=== PATIENT | male | born 1940 | race Caucasian/White ===

== ENCOUNTER 2020-05-07 00:44 | Outpatient (CLI) | payer MEDICARE, SELFPAY ==
[2020-05-07 18:11] LABS: SARS-CoV-2 RNA PCR Negative
== END 2020-05-07 00:45 | disposition home or self-care (01) ==
LOC: ANHCOVIDDT 00:50
PROVIDERS: PCP Family Medicine; Visit Provider Urology
DX: Z01.812 Encounter for preprocedural laboratory examination (principal); Z11.59 Encounter for screening for other viral diseases
CPT/HCPCS: 87635; C9803; U0003

== ENCOUNTER 2020-05-07 09:21 | Outpatient (CLI) | payer MEDICARE, SELFPAY ==
--- NOTE | 2020-05-07 09:40 | ECG_ITS ---
Measurements Intervals [place] Rate: 72 P: 71 LA: 174 QRS: 7 QRSD: 119 T: 38 QT: 387 QTc: 424 Interpretive Statements SINUS RHYTHM LEFT ATRIAL ENLARGEMENT INTRAVENTRICULAR CONDUCTION DELAY ANTEROSEPTAL INFARCT, AGE INDETERMINATE PEAKED T WAVES- CONSIDER HYPERKALEMIA OR ISCHEMIA BORDERLINE ST ABNORMALITY- HIGH LATERAL LEADS ABNORMAL ECG Electronically Signed On 05-07-2020 10:29:08 CDT by Jeronimo Sesay D.O.
[2020-05-07 09:45] LABS: Basophils Absolute Auto 0.1 K/mm3 (0.0-0.1); Basophils Percent Auto 0.5 % (0.2-1.2); Eosinophils Absolute Auto 0.4 K/mm3 (0-0.3); Eosinophils Percent Auto 3.2 % (0-4.4); Hematocrit 45.2 % (42.0-52.0); Hemoglobin 14.8 g/dL (14.0-18.0); Immature Granulocyte Absolute 0.02 K/mm3 (0.00-0.031); Immature Granulocyte Percent A 0.2 % (0-0.5); Lymphocytes Absolute Auto 1.34 K/mm3 (0.9-3.2); Lymphocytes Percent Auto 12.3 % (18.3-44.2); Mean Corpuscular HGB Conc 32.7 g/dl (32-36); Mean Corpuscular Hemoglobin 32.4 pg (26-34); Mean Corpuscular Volume 98.9 fl (80-100); Mean Platelet Volume 10.1 fl (7.4-10.4); Monocytes Absolute Auto 0.8 K/mm3 (0.1-0.6); Monocytes Percent Auto 7.7 % (2.6-8.5); Neutrophils Absolute Auto 8.3 K/mm3 (1.3-6.7); Neutrophils Percent Auto 76.1 % (45.5-73.1); Platelet Count Result 180 k/mm3 (150-375); Red Blood Count 4.57 M/mm3 (4.6-6.20); Red Cell Distribution Width 13.6 % (11.5-14.5); White Blood Count 10.9 K/mm3 (4.5-10.0)
[2020-05-07 09:55] LABS: Prothrombin Time 12.4 Seconds (11.1-14.7)
[2020-05-07 09:56] LABS: Partial Thromboplastin Time 26.8 SECONDS (22.3-36.8)
[2020-05-07 09:57] LABS: Anion Gap 7 mmol/L (8-16); Blood Urea Nitrogen 18 mg/dL (9-20); Calcium 8.8 mg/dL (8.4-10.2); Carbon Dioxide 26 mmol/L (22-30); Chloride 105 mmol/L (98-107); Estimated Glomerular Filt Rate 42; Glucose 120 mg/dL (75-110); Potassium 4.1 mmol/L (3.4-5.0); Sodium 138 mmol/L (137-145)
== END 2020-05-07 09:22 | disposition home or self-care (01) ==
PROVIDERS: PCP Family Medicine; Referring Provider Anesthesiology; Visit Provider Urology
DX: Z01.818 Encounter for other preprocedural examination (principal); I10 Essential (primary) hypertension; D49.4 Neoplasm of unspecified behavior of bladder; R94.31 Abnormal electrocardiogram [ECG] [EKG]
CPT/HCPCS: 36415; 80048; 85025; 85610; 85730; 93005

== ENCOUNTER 2020-05-10 01:44 | Day surgery (SDC) | payer MEDICARE, SELFPAY ==
[2020-05-03 09:38] VITALS: BMI 20.2
[2020-05-10] VITALS (11 sets, daily range): BP systolic 126–207; BP diastolic 58–99; PULSE 63–77; RESP 12–16; TEMP 36.2–36.7; O2SAT 96–100
[2020-05-10] MEDS: LACTATED RINGERS 1,000 ML 30 ML IV CONT (10:45)
--- NOTE | 2020-05-10 12:39 | WPDHPUPDATE1 ---
History and Physical Update Update Date/Time: 05/10/20 12:39 History and Physical has been reviewed, including an updated exam of the patient. There are NO changes in the patient's condition. Risks, benefits, and alternatives have been discussed and questions answered. Patient agrees to proceed with procedure.
--- NOTE | 2020-05-10 12:40 | WPDANESEPPF ---
Anes - Initial Pre Proc Eval Procedure: Operation Date: 05/10/20 12:30 Proposed Procedures p Trans Urethral Resection Bladder Tumor - Tim Martinez MD Date/Time: 05/10/20 12:40 Surgeon: Tim Martinez MD Pre Op Diagnosis: bladder CA Patient Data Age: 79 Gender: M Height: 5 ft 8 in Weight: 62.4 kg Last Vital Signs Temp 36.7 C 05/10/20 10:56 Pulse 68 05/10/20 10:56 Resp 16 05/10/20 10:56 BP 170/87 H 05/10/20 10:56 Pulse Ox 98 05/10/20 10:56 Allergies Allergy/AdvReac Type Severity Reaction Status Date / Time No Known Allergies Allergy Verified 05/10/20 10:20 Home Medications Medication Instructions Recorded Confirmed Type aspirin 81 mg tablet,delayed 81 mg PO DAILY 10/05/19 05/10/20 History release cholecalciferol (vitamin D3) 25 1,000 unit PO DAILY 10/05/19 05/10/20 History mcg (1,000 unit) capsule vitamin E (dl, acetate) 100 unit 100 unit PO DAILY cap 10/05/19 05/10/20 History capsule clopidogrel 75 mg tablet See Rx Instructions .ROUTE 02/29/20 05/10/20 Rx .COMPLEX #90 tablet B-complex with vitamin C 1 tablet PO DAILY 05/02/20 05/10/20 History carvedilol 12.5 mg BID 05/03/20 05/10/20 History coenzyme Q10 100 mg capsule 100 mg PO DAILY 05/04/20 05/10/20 History ferrous gluconate 240 mg (27 mg 240 mg PO DAILY 05/04/20 05/10/20 History iron) tablet lisinopril 20 mg tablet 20 mg PO DAILY #90 tablet 05/04/20 05/10/20 Rx simvastatin 40 mg tablet 20 mg PO DAILY #90 tablet 05/04/20 05/04/20 Rx Patient hx anesthesia problems: none Family hx anesthesia problems: none PMFSH Past Medical History Medical History Anemia Bilateral carotid artery stenosis Bladder tumor CAD in [place] artery (~10/2013) Chronic combined systolic and diastolic CHF (congestive heart failure) (~10/2013) CKD (chronic kidney disease) stage 3, GFR 30-59 ml/min Dyslipidemia, goal LDL below 100 Essential (primary) hypertension Gross hematuria Hx of TIA (transient ischemic attack) and stroke (~05/2014) LBBB (left bundle branch block) Typhoid fever Surgical History Surgical History History of bilateral carotid endarterectomy 03/2014 and 05/2014 History of bladder surgery 03/2019 Family History Family History Other Family history of coronary artery disease Hypertension Social History Social History Smoking status: Current every day smoker Second hand tobacco smoke exposure: Yes Additional smoking assessment comments: 1/2PK/DAY/ON & OFF MANY YRS Alcohol intake: current Substance use: never Substance use type: does not use Living arrangements: alone Gender identity (if verbalized by the patient): Male Spiritual care concerns: No Anes - Eval Final PreProcedure Day of Procedure 05/10/20 12:40 Patient weight: normal Heart: regular rate and rhythm Lungs: decreased breath sounds Airway: Mallampati scale class II Neurological: alert and oriented Last oral intake: >/= 8 hours ASA classification: IV Emergent: no Anesthetic plan: proceed Anesthesia type and monitoring: general LMA and standard monitoring Informed Consent: The patient's anesthetic plan and its attendant risks and benefits were discussed with the patient/family/POA. Questions were solicited and answers provided to the satisfaction of the patient/family/POA.
--- NOTE | 2020-05-10 12:41 | SUR.PREOP ---
Discussed delay with patient. Voices understanding.
[2020-05-10] MEDS: ceFAZolin 2 GM/D5W 50 ML 2 GM/50 ML BAG IVPB (14:23)
[2020-05-10] MEDS: LIDOCAINE HCL 2% GEL UROJET 10 ML PKG MUCOUS MEM (14:33)
--- NOTE | 2020-05-10 15:02 | PM.PROC ---
Procedure Note - Detailed Date of procedure: 05/10/20 Pre-op diagnosis: bladder CA Post-op diagnosis: same Procedure performed: Transurethral resection of multiple bladder tumors greater than 5 cm total. Description of procedure: Patient was taken the operative suite and correctly identified. Once anesthesia was obtained he was placed in the dorsal lithotomy position and prepped and draped usual sterile fashion. Twenty-four [place] resectoscope sheath was inserted the bladder. He has tumors noted along the floor as well as the dome of the bladder/anterior wall And left lateral wall. We went ahead and resected all these areas. The largest tumor was along the anterior wall dome area measuring at least 3 cm area. The area on the floor was then least 2 cm. A area on the left lateral wall was about a cm and a half. Hemostasis was achieved using electrocautery. 2% viscous lidocaine was inserted urethra an 18 [place] 3 was placed. Bladder tumor was sent for analysis. Patient was taken recovery stable condition. If his urine is cleared will be discharged home with a Fenton catheter and have it removed on Saturday. Anesthesia: GLMA Surgeon: Tim Martinez MD Drains: Yes Packing: No Pathology: yes Complications: No immediate complications Condition: stable Disposition: PACU
[2020-05-10] MEDS: hydrALAZINE HCL 20 MG/ML VIAL 10 MG IV PUSH ×2 (15:25→16:07)
== END 2020-05-10 17:40 | disposition home or self-care (01) ==
PROVIDERS: PCP Family Medicine; Visit Provider Urology
PROC: 0TBB8ZZ Excision of Bladder, Via Natural or Artificial Opening Endoscopic (ICD-10-PCS; CPT 52235; principal; 2020-05-10 12:30)
DX: C67.8 Malignant neoplasm of overlapping sites of bladder (principal); I13.0 Hypertensive heart and chronic kidney disease with heart failure and stage 1 through stage 4 chronic kidney disease, or unspecified chronic kidney disease; I50.42 Chronic combined systolic (congestive) and diastolic (congestive) heart failure; N18.3 Chronic kidney disease, stage 3 (moderate); I25.10 Atherosclerotic heart disease of native coronary artery without angina pectoris; D64.9 Anemia, unspecified; E78.5 Hyperlipidemia, unspecified; I44.7 Left bundle-branch block, unspecified; Z86.73 Personal history of transient ischemic attack (TIA), and cerebral infarction without residual deficits; Z79.82 Long term (current) use of aspirin; F17.210 Nicotine dependence, cigarettes, uncomplicated
CPT/HCPCS: 52235; 36415; 80048; 85025; 85610; 85730; 87635; 88305; 88307; 93005; A9270; C9803; J0360; J0690; J1100; J2405; J2704; J3010; J7120; U0003

== ENCOUNTER 2020-05-12 14:55 | Inpatient (IN) | payer MEDICARE, SELFPAY ==
[2020-05-11] VITALS (10 sets, daily range): BP systolic 129–180; BP diastolic 57–84; PULSE 41–79; RESP 12–22; TEMP 35.9–36.8; O2SAT 91–100
[2020-05-11] MEDS: LACTATED RINGERS 1,000 ML 30 ML IV CONT (16:05)
--- NOTE | 2020-05-11 16:12 | WPDHPUPDATE1 ---
History and Physical Update Update Date/Time: 05/11/20 16:12 History and Physical has been reviewed, including an updated exam of the patient. There are NO changes in the patient's condition. Risks, benefits, and alternatives have been discussed and questions answered. Patient agrees to proceed with procedure. Plan for cysto with clot evacuation and cystogram
[2020-05-11] MEDS: ceFAZolin 2 GM/D5W 50 ML 2 GM/50 ML BAG IVPB (16:22)
--- NOTE | 2020-05-11 16:53 | P.OP_ITS ---
Procedure Note - Detailed Date of procedure: 05/11/20 Pre-op diagnosis: Hematuria Post-op diagnosis: same Procedure performed: Cystoscopy, clot evacuation with fulguration, resection of bladder lesion -5mm, cystogram Description of procedure: patient was taken the operative suite and correctly identified. Once anesthesia was obtained he was placed in dorsal lithotomy position and prepped and draped usual sterile fashion. Twenty-four [place] resectoscope sheath was inserted in the bladder. He had a small tumor that we extracted. We went ahead and fulgurated the prior resection sites all there was no active bleeding at this time. He was also noted that there was a small tumor that we had missed yesterday measuring about 5 mm just adjacent to the resection site. We went ahead resected this with a 24 [place] loop. This was sent for analysis. We then placed a [address] Fenton inflated with 10 cc in the balloon. we performed a cystogram through this. There was no evidence of extravasation during injection but is some question of some when we took our final shot with the bladder empty. It appears to be extraperitoneal if it indeed it is. Fenton was connected to continuous bladder irrigation is taken recovery stable condition. He will be admitted for observation overnight. Will plan on leaving the Fenton in until next week. Anesthesia: MAC Surgeon: Tim Martinez MD Drains: Yes Packing: No Pathology: yes Complications: No immediate complications Condition: stable Disposition: PACU
--- NOTE | 2020-05-11 17:35 | SUR.PHASEI ---
[phone] sbar faxed floor notified
--- NOTE | 2020-05-11 18:06 | PC.NURSE ---
This patient, Sarabjit Gordon, was admitted to Medical Room 348-. Patient/family oriented to hospital policies and general routines including ID bracelet, bed and alarms, visiting hours, pain management, procedures, bathroom and other care routines, personal items, smoking policy, room service/diet, and visiting hours. Valuables list has been completed. Information on how to activate the Rapid Response Team has been discussed. Patient/Family are encouraged to report perceived risks to care and to ask questions if they do not understand what they are told or what they should do.
[2020-05-11] MEDS: ONDANSETRON INJ 4 MG/2 ML VIAL IV PUSH (18:34)
[2020-05-11] MEDS: DEXTROSE 5%/LACTATED RINGERS 1,000 ML 125 ML IV CONT (18:44)
[2020-05-11] MEDS: DOCUSATE SODIUM 100 MG CAPSULE PO (20:35)
--- NOTE | ~2020-05-12 | XR_ITS ---
EXAMINATION: XR abdomen obstructive series EXAM DATE: 05/13/2020 18:19 INDICATION: Nausea, constipation, appetite loss. TECHNIQUE: Frontal upright projection of the upper abdomen, frontal projection of the lower abdomen f or interpretation. There is no prior study for comparison. FINDINGS: There is expected amount of colonic stool and gas. No small bowel dilation, nonobstructiv e bowel gas pattern. Calcification projecting over the expected location of right kidney, possible n ephrolithiasis measuring about a centimeter. There is no organomegaly. There is moderate lumbar levos coliosis. Advanced lumbar spondylosis. IMPRESSION: Unremarkable abdomen x-ray exam. Possible right nephrolithiasis. Reviewed, dictated and finalized at location A.
--- NOTE | ~2020-05-12 | XR_ITS ---
EXAMINATION: XR OR cystogram EXAM DATE: 05/11/2020 17:12 INDICATION: TECHNIQUE: Fluoroscopy used during XR OR cystogram performed by Dr. Tim Martinez MD. The DAP for this procedure was0.3 mGym2. FINDINGS: There is blush of contrast within the central aspect of the contrast with some extension t oward the right side of the pelvis. Based on single image, appears suspicious for bladder extravasati on but please correlate with procedure note. IMPRESSION: Possible bladder contrast extravasation. Reviewed, dictated and finalized at location A.
--- NOTE | ~2020-05-12 | XR_ITS ---
EXAMINATION: XR chest 2V DATE: 05/14/2020 12:56 INDICATION: Cough. Rhonchi. TECHNIQUE: Frontal and lateral views of the chest were obtained. COMPARISON: Chest 2 views 04/21/2014, CT abdomen and pelvis 07/06/2018 FINDINGS: There are small pleural effusions. There are airspace opacities at the lung bases, right wo rse than left. There is mild atelectasis in left midlung zone. No pneumothorax. The heart size is nor mal. IMPRESSION: 1. Airspace opacities at the lung bases, right worse than left, consistent with atelectasis versus pn eumonia. 2. Small pleural effusions. Reviewed, dictated and finalized at location A. IMPRESSION: 1. Airspace opacities at the lung bases, right worse than left, consistent with atelectasis versus pneumonia. 2. Small pleural effusions.
[2020-05-12 02:00] VITALS: BP 138/65; PULSE 87; RESP 18; TEMP 37.1; O2SAT 90
[2020-05-12 06:00] VITALS: BP 110/53; PULSE 88; RESP 20; TEMP 37.2; O2SAT 94
[2020-05-12 06:11] LABS: Hematocrit 37.9 % (42.0-52.0)
[2020-05-12 06:22] LABS: Anion Gap 6 mmol/L (8-16); Blood Urea Nitrogen 28 mg/dL (9-20); Calcium 7.9 mg/dL (8.4-10.2); Carbon Dioxide 23 mmol/L (22-30); Chloride 98 mmol/L (98-107); Estimated Glomerular Filt Rate 33; Glucose 108 mg/dL (75-110); Potassium 4.2 mmol/L (3.4-5.0); Sodium 127 mmol/L (137-145)
--- NOTE | 2020-05-12 08:46 | WPDANESPN ---
Anes - Prog Note Post-Op Date/Time: 05/12/20 08:46 Cardiovascular status: normal Respiratory status: normal Airway patency: baseline Mental status: baseline Post-Op hydration status: normal Vital Signs: Last Vital Signs Temp 37.2 C 05/12/20 06:00 Pulse 88 05/12/20 06:00 Resp 20 05/12/20 06:00 BP 110/53 L 05/12/20 06:00 Pulse Ox 94 05/12/20 06:00 I/O: Intake & Output 05/11/20 05/12/20 05/12/20 23:59 07:59 15:59 Intake Total 700 1150 Output Total 2200 650 Balance -1500 500 Laboratory Tests 05/12/20 06:05 05/12/20 06:05 05/12/20 05/12/20 06:05 06:05 Hgb 13.0 L Hct 37.9 L Sodium 127 L Potassium 4.2 Chloride 98 Carbon Dioxide 23 Anion Gap 6 L BUN 28 H D Creatinine 2.00 H Estim Creat Clear Calc Not Reportable Estimated GFR 33 L Glucose 108 Calcium 7.9 L Post-procedural complaints: none Patient Feedback: Patient satisfied with anesthetic care.
[2020-05-12] MEDS: DOCUSATE SODIUM 100 MG CAPSULE PO ×2 (08:57→16:55)
[2020-05-12] MEDS: FAMOTIDINE 20 MG TABLET PO ×2 (10:01→20:38)
[2020-05-12] MEDS: ONDANSETRON INJ 4 MG/2 ML VIAL IV PUSH (10:01)
[2020-05-12] MEDS: DEXTROSE 5%/LACTATED RINGERS 1,000 ML 125 ML IV CONT ×2 (10:02→18:38)
--- NOTE | 2020-05-12 12:01 | WPDUROPN2 ---
Progress Note: A&P Assessment and Plan (1) Bladder tumor: Code(s): D49.4 - Neoplasm of unspecified behavior of bladder Status: Acute (2) Gross hematuria: Code(s): R31.0 - Gross hematuria Status: Acute Assessment and Plan: Keep CBI running until clear, then wean to off. Will plan to keep talley in for 1 week and remove in the office. Will re-evaluate tomorrow morning. Subjective Subjective Date/Time Seen: 05/12/20 12:01 POD #1 Cystoscopy, clot evacuation with fulguration, resection of bladder lesion -5mm, cystogram POD #2 TURBT Review of Systems Respiratory: Respiratory: Reports no additional respiratory complaints Gastrointestinal: Gastrointestinal: Reports abdominal pain, Denies nausea and Denies vomiting Genitourinary: Genitourinary: Reports hematuria, Denies testicular pain, Denies urinary frequency, Denies urinary hesitancy, Denies urinary incontinence and Denies urinary urgency Exam Resp: Effort & Inspection: normal respiratory effort Cardio: Rate: regular rate GI: GI Palp: Yes Soft to palpation and Yes Tenderness to palpation present (GI) : General: Yes no CVA tenderness Urinary Catheter: Urinary Catheter: patent and draining, urine clear and urine pink Extrem: General: no edema Objective Data Vital Signs Vital Signs: Vital Signs - 24 hr 05/11/20 16:21 05/11/20 16:59 05/11/20 17:15 Temperature 98.2 F 97.6 F Pulse Rate 78 74 72 Respiratory Rate 20 12 18 Blood Pressure 175/74 H 129/57 L 180/76 H Pulse Oximetry 100 100 05/11/20 17:30 05/11/20 17:45 05/11/20 18:10 Temperature 97.5 F L Pulse Rate 74 79 77 Respiratory Rate 18 18 18 Blood Pressure 161/84 H 163/79 H 176/82 H Pulse Oximetry 94 94 92 05/11/20 18:48 05/11/20 18:55 05/11/20 19:44 Temperature 96.9 F L 97.2 F L 96.6 F L Pulse Rate 63 73 41 L Respiratory Rate 18 18 22 H Blood Pressure 174/71 H 141/81 H 147/75 H Pulse Oximetry 92 96 94 05/11/20 22:00 05/12/20 02:00 05/12/20 06:00 Temperature 97.1 F L 98.7 F 98.9 F Pulse Rate 78 87 88 Respiratory Rate 20 18 20 Blood Pressure 172/70 H 138/65 110/53 L Pulse Oximetry 91 90 94 Intake/Output Intake/Output: Intake & Output 05/09/20 05/10/20 05/11/20 05/12/20 23:59 23:59 23:59 23:59 Intake Total 700 1260 Output Total 2200 3550 Balance -1500 -2290 Meds/Results Medications: Active Medications Generic Name Dose Route Start Last Admin Trade Name Freq PRN Reason Stop Dose Admin Hydrocodone Bitart/Acetaminophen 1 tab 05/11/20 17:59 [place] 5-325 Mg PO Q4H PRN Pain Rated 1-6 Cephalexin HCl 500 mg 05/12/20 13:00 Keflex Capsule PO QID SWAPNA Docusate Sodium 100 mg 05/11/20 21:00 05/12/20 08:57 Colace Capsule PO 100 mg BID SWAPNA Administration Famotidine 20 mg 05/12/20 09:00 05/12/20 10:01 Pepcid PO 20 mg Q12HR SWAPNA Administration Hyoscyamine 0.125 mg 05/11/20 17:59 Levsin Tablet SUBLINGUAL Q6H PRN Bladder Spasm Dextrose/Lactated Ringer's 1,000 mls @ 125 mls/hr 05/11/20 17:59 05/12/20 10:02 Dextrose 5%/Lactated Ringers IV CONT 125 mls/hr .Q8H SWAPNA Administration Morphine Sulfate 2 mg 05/11/20 17:59 Morphine Sulfate Inj IV PUSH Q2H PRN Pain Rated 7-10 Naloxone HCl 0.1 mg 05/11/20 17:59 Narcan IV PUSH Q2M PRN Opiate Reversal Ondansetron HCl 4 mg 05/11/20 17:59 05/12/20 10:01 Zofran Inj IV PUSH 4 mg Q12H PRN Administration Nausea And Vomiting Radiology Results: ITS Impressions Cystogram 05/11/20 17:25 IMPRESSION: Possible bladder contrast extravasation. Labs Labs: Laboratory Results - last 24 hr 05/12/20 05/12/20 06:05 06:05 Hgb 13.0 L Hct 37.9 L Sodium 127 L Potassium 4.2 Chloride 98 Carbon Dioxide 23 Anion Gap 6 L BUN 28 H D Creatinine 2.00 H Estim Creat Clear Calc Not Reportable Estimated GFR 33 L Glucose 108 Calcium 7.9 L
[2020-05-12] MEDS: CEPHALEXIN 500 MG CAPSULE PO ×3 (12:24→20:38)
[2020-05-12 14:00] VITALS: BP 129/55; PULSE 85; RESP 16; TEMP 37.1; O2SAT 95
[2020-05-12] MEDS: HYOSCYAMINE SULFATE 0.125 MG TABLET SUBLINGUAL (18:47)
[2020-05-12 21:44] VITALS: BP 136/80; PULSE 91; RESP 14; TEMP 37; O2SAT 92
[2020-05-13] MEDS: DEXTROSE 5%/LACTATED RINGERS 1,000 ML 125 ML IV CONT ×3 (03:00→19:40)
[2020-05-13 04:42] VITALS: BP 128/57; PULSE 55; RESP 14; TEMP 36.8; O2SAT 94
--- NOTE | 2020-05-13 09:09 | WPDUROPN2 ---
Progress Note: A&P Assessment and Plan (1) Bladder tumor: Code(s): D49.4 - Neoplasm of unspecified behavior of bladder Status: Acute Assessment and Plan: Urine has cleared off of CBI. Patient will go home with talley and have it removed next week in the office. May keep CBI off. (2) Gross hematuria: Code(s): R31.0 - Gross hematuria Status: Acute Assessment and Plan: Resolved (3) JONATAN (acute kidney injury): Code(s): N17.9 - Acute kidney failure, unspecified Status: Acute Assessment and Plan: A stat BMP was drawn to check creatinine, as it increased yesteday to 2.0 from 1.6. Once creatinine is stable, will plan to discharge home. Subjective Subjective Date/Time Seen: 05/13/20 09:09 POD #2 Cystoscopy, clot evacuation with fulguration, resection of bladder lesion -5mm, cystogram POD #3 TURBT Urine is clear today off CBI. Review of Systems Cardiovascular: Cardiovascular: Denies chest pain Respiratory: Respiratory: Reports no additional respiratory complaints Gastrointestinal: Gastrointestinal: Denies abdominal pain, Denies nausea and Denies vomiting Genitourinary: Genitourinary: Denies hematuria Exam Resp: Effort & Inspection: normal respiratory effort Cardio: Rate: bradycardic GI: GI Palp: Yes Soft to palpation and No Tenderness to palpation present (GI) : General: Yes no CVA tenderness Urinary Catheter: Urinary Catheter: patent and draining and urine clear Extrem: General: no edema Objective Data Vital Signs Vital Signs: Vital Signs - 24 hr 05/12/20 14:00 05/12/20 21:44 05/13/20 04:42 Temperature 98.8 F 98.6 F 98.2 F Pulse Rate 85 91 55 L Respiratory Rate 16 14 14 Blood Pressure 129/55 L 136/80 128/57 L Pulse Oximetry 95 92 94 Intake/Output Intake/Output: Intake & Output 05/10/20 05/11/20 05/12/20 05/13/20 23:59 23:59 23:59 23:59 Intake Total 700 3870 1240 Output Total 2200 4600 550 Balance -1500 -730 690 Meds/Results Medications: Active Medications Generic Name Dose Route Start Last Admin Trade Name Freq PRN Reason Stop Dose Admin Hydrocodone Bitart/Acetaminophen 1 tab 05/11/20 17:59 05/12/20 18:45 [place] 5-325 Mg PO 1 tab Q4H PRN Administration Pain Rated 1-6 Cephalexin HCl 500 mg 05/12/20 13:00 05/12/20 20:38 Keflex Capsule PO 500 mg QID SWAPNA Administration Docusate Sodium 100 mg 05/11/20 21:00 05/12/20 16:55 Colace Capsule PO 100 mg BID SWAPNA Administration Famotidine 20 mg 05/12/20 09:00 05/12/20 20:38 Pepcid PO 20 mg Q12HR SWAPNA Administration Hyoscyamine 0.125 mg 05/11/20 17:59 05/12/20 18:47 Levsin Tablet SUBLINGUAL 0.125 mg Q6H PRN Administration Bladder Spasm Dextrose/Lactated Ringer's 1,000 mls @ 125 mls/hr 05/11/20 17:59 05/13/20 03:00 Dextrose 5%/Lactated Ringers IV CONT 125 mls/hr .Q8H SWAPNA Administration Morphine Sulfate 2 mg 05/11/20 17:59 Morphine Sulfate Inj IV PUSH Q2H PRN Pain Rated 7-10 Naloxone HCl 0.1 mg 05/11/20 17:59 Narcan IV PUSH Q2M PRN Opiate Reversal Ondansetron HCl 4 mg 05/11/20 17:59 05/12/20 10:01 Zofran Inj IV PUSH 4 mg Q12H PRN Administration Nausea And Vomiting Radiology Results: ITS Impressions Cystogram 05/11/20 17:25 IMPRESSION: Possible bladder contrast extravasation.
[2020-05-13 09:22] LABS: Anion Gap 3 mmol/L (8-16); Blood Urea Nitrogen 18 mg/dL (9-20); Calcium 7.9 mg/dL (8.4-10.2); Carbon Dioxide 24 mmol/L (22-30); Chloride 105 mmol/L (98-107); Estimated Glomerular Filt Rate 49; Glucose 127 mg/dL (75-110); Potassium 4.2 mmol/L (3.4-5.0); Sodium 132 mmol/L (137-145)
[2020-05-13] MEDS: FAMOTIDINE 20 MG TABLET PO ×2 (09:32→21:57)
[2020-05-13] MEDS: CEPHALEXIN 500 MG CAPSULE PO ×4 (09:32→21:57)
[2020-05-13] MEDS: DOCUSATE SODIUM 100 MG CAPSULE PO ×2 (09:32→16:50)
[2020-05-13 14:00] VITALS: BP 178/80; PULSE 90; RESP 16; TEMP 36.9; O2SAT 92
[2020-05-13 14:55] VITALS: PULSE 90
[2020-05-13] MEDS: carvediloL 12.5 MG TABLET PO ×2 (14:55→21:57)
[2020-05-13] MEDS: lisinopriL 20 MG TABLET PO (14:56)
[2020-05-13 16:57] VITALS: BP 156/86
[2020-05-13 20:46] VITALS: BP 146/93; PULSE 86; RESP 16; TEMP 36.9; O2SAT 95
[2020-05-13 21:57] VITALS: PULSE 68
[2020-05-14] VITALS (14 sets, daily range): BP systolic 170–185; BP diastolic 68–78; PULSE 71–86; RESP 16–18; TEMP 36.8–37.2; O2SAT 93–95
[2020-05-14] MEDS: ALBUTEROL SULFATE NEB 2.5 MG/0.5 ML INH 5 MG INHALATION ×4 (04:36→19:18)
[2020-05-14] MEDS: DEXTROSE 5%/LACTATED RINGERS 1,000 ML 125 ML IV CONT (05:47)
[2020-05-14] MEDS: CEPHALEXIN 500 MG CAPSULE PO ×4 (08:42→21:50)
[2020-05-14] MEDS: lisinopriL 20 MG TABLET PO (08:43)
[2020-05-14] MEDS: carvediloL 12.5 MG TABLET PO ×2 (08:44→21:49)
[2020-05-14] MEDS: FAMOTIDINE 20 MG TABLET PO ×2 (08:46→21:50)
[2020-05-14 09:39] LABS: Magnesium 1.7 mg/dL (1.6-2.3)
[2020-05-14 09:54] LABS: Anion Gap 5 mmol/L (8-16); Blood Urea Nitrogen 12 mg/dL (9-20); Calcium 8.3 mg/dL (8.4-10.2); Carbon Dioxide 27 mmol/L (22-30); Chloride 104 mmol/L (98-107); Estimated Glomerular Filt Rate > 60; Glucose 175 mg/dL (75-110); Potassium 3.6 mmol/L (3.4-5.0); Sodium 136 mmol/L (137-145)
--- NOTE | 2020-05-14 11:47 | PM.IMCN ---
Assessment and Plan Assessment and plan (1) Chronic combined systolic and diastolic CHF (congestive heart failure): Onset Date: ~10/2013 Code(s): I50.42 - Chronic combined systolic (congestive) and diastolic (congestive) heart failure Status: Acute Assessment and Plan: Lung exam reveals rhonchi and crackles, possibly suggesting a bit volume overload. He has had nearly 10L input since admission, with unclear output amount. Patient currently on IVF at 125 mL/hr due to poor oral intake since 05/11. Other considerations for cough/congestion would be possible pneumonia, although he has not had a fever. No diagnosis of COPD although is a smoker Will obtain a CXR Stop IVF as he may be a bit vol overloaded and is now having increased PO intake Will give 20 mg Lasix IV to see if this helps with congestion Obtain a CBC to assess WBC Will start IS as well in case there is atelectasis due to limited activity on previous days (nursing states he has been ambulating more today) Recommend observing overnight and reassessing tomorrow (2) Constipation: Code(s): K59.00 - Constipation, unspecified Status: Acute Assessment and Plan: With poor appetite/poor PO intake for several days. This appears to have resolved as he has had a BM and is tolerating PO today. No change in current management Monitor (3) JONATAN (acute kidney injury): Code(s): N17.9 - Acute kidney failure, unspecified Status: Acute Assessment and Plan: Acute on CKDIII; appears to be at or below his baseline with Cr today showing 1.10. Monitor Will stop IVF (4) Bladder tumor: Code(s): D49.4 - Neoplasm of unspecified behavior of bladder Status: Acute Assessment and Plan: Management per primary service (5) Anemia: Code(s): D64.9 - Anemia, unspecified Status: Acute Assessment and Plan: Appears to be at baseline Monitor (6) Gross hematuria: Code(s): R31.0 - Gross hematuria Status: Acute Assessment and Plan: Management per primary service (7) CAD in [place] artery: Onset Date: ~10/2013 Code(s): I25.10 - Atherosclerotic heart disease of [place] coronary artery without angina pectoris Status: Acute Assessment and Plan: Aspirin and plavix held per primary service Will defer resumption of these meds per primary service (8) Dyslipidemia, goal LDL below 100: Code(s): E78.5 - Hyperlipidemia, unspecified Status: Acute Assessment and Plan: Will resume statin Check LFTs tomorrow (9) Essential (primary) hypertension: Code(s): I10 - Essential (primary) hypertension Status: Acute Assessment and Plan: BP labile with last reading 180s sys prior to meds Continue home antihypertensives Monitor Additional Plan Thank you for allowing the Hospitalist team to care for this patient during their stay. We will continue to follow with you. Please call with any questions Collaborative physician for this Hospitalist Consult H&P is Dr. Gregg GREGORIO 05/14/2020 at roughly 11:45 am HPI Data of Consult Consult date: 05/14/20 Requesting Physician: KELI ColladoC Primary Care Provider: Lukas Tripp MD Consult Narrative Narrative: Sarabjit G Heidi is a 79 year old male with history of CAD, chronic systolic and diastolic CHF, CKD, HTN, and bladder tumor who presented to the hospital on 05/11 for planned cystoscopy, clot evacuation with fulguration, resection of bladder lesion -5mm, and cystogram for management of bladder tumor on the same day of presentation; Hospitalist
[2020-05-14] MEDS: FUROSEMIDE INJ 40 MG/4 ML VIAL 20 MG IV PUSH (12:20)
[2020-05-14] MEDS: POTASSIUM CHLORIDE 20 MEQ PACKET (FOR LIQUID) PO (12:20)
[2020-05-14 13:40] LABS: Basophils Percent Auto 0.2 % (0.2-1.2); Eosinophils Absolute Auto 0.1 K/mm3 (0-0.3); Eosinophils Percent Auto 0.8 % (0-4.4); Hematocrit 36.2 % (42.0-52.0); Hemoglobin 12.2 g/dL (14.0-18.0); Immature Granulocyte Absolute 0.05 K/mm3 (0.00-0.031); Immature Granulocyte Percent A 0.6 % (0-0.5); Lymphocytes Absolute Auto 0.91 K/mm3 (0.9-3.2); Lymphocytes Percent Auto 10.4 % (18.3-44.2); Mean Corpuscular HGB Conc 33.7 g/dl (32-36); Mean Corpuscular Hemoglobin 32.8 pg (26-34); Mean Corpuscular Volume 97.3 fl (80-100); Mean Platelet Volume 10.5 fl (7.4-10.4); Monocytes Absolute Auto 0.8 K/mm3 (0.1-0.6); Monocytes Percent Auto 9.1 % (2.6-8.5); Neutrophils Absolute Auto 6.9 K/mm3 (1.3-6.7); Neutrophils Percent Auto 78.9 % (45.5-73.1); Platelet Count Result 157 k/mm3 (150-375); Red Blood Count 3.72 M/mm3 (4.6-6.20); Red Cell Distribution Width 13.9 % (11.5-14.5); White Blood Count 8.8 K/mm3 (4.5-10.0)
[2020-05-14] MEDS: SIMVASTATIN 20 MG TABLET PO (14:06)
--- NOTE | 2020-05-14 15:52 | WPDUROPN2 ---
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 Trial of voiding in am. Pathology pending Medical eval and treatment noted---likely home tomorrow (2) Gross hematuria: Code(s): R31.0 - Gross hematuria Status: Acute Assessment and Plan: urine now clear Subjective Subjective Date/Time Seen: 05/14/20 15:52 Fenton clear today. Getting Lasix. Breathing improved. Review of Systems Genitourinary: Genitourinary: Denies flank pain Exam Resp: Effort & Inspection: normal respiratory effort : General: Yes no CVA tenderness Urinary Catheter: Urinary Catheter: patent and draining and urine clear Back/Spine/Pelvis: Back: no CVA tenderness Objective Data Vital Signs Vital Signs: Vital Signs - 24 hr 05/13/20 16:57 05/13/20 20:46 05/13/20 21:57 Temperature 36.9 C Pulse Rate 86 68 Respiratory Rate 16 Blood Pressure 156/86 H 146/93 H Pulse Oximetry 95 05/14/20 04:10 05/14/20 04:36 05/14/20 04:47 Temperature 37.2 C Pulse Rate 76 78 81 Respiratory Rate 16 16 16 Blood Pressure 180/78 H Pulse Oximetry 93 05/14/20 08:44 05/14/20 08:55 05/14/20 09:05 Temperature Pulse Rate 86 83 85 Respiratory Rate 16 16 Blood Pressure Pulse Oximetry 05/14/20 14:00 05/14/20 15:00 05/14/20 15:10 Temperature 36.8 C Pulse Rate 76 78 82 Respiratory Rate 18 16 16 Blood Pressure 185/76 H Pulse Oximetry 95 Intake/Output Intake/Output: Intake & Output 05/11/20 05/12/20 05/13/20 05/14/20 23:59 23:59 23:59 23:59 Intake Total 700 3870 3690 2050 Output Total 2200 4600 1950 650 Balance -1500 -730 1740 1400 Meds/Results Medications: Active Medications Generic Name Dose Route Start Last Admin Trade Name Freq PRN Reason Stop Dose Admin Hydrocodone Bitart/Acetaminophen 1 tab 05/11/20 17:59 05/12/20 18:45 [place] 5-325 Mg PO 1 tab Q4H PRN Administration Pain Rated 1-6 Albuterol 5 mg 05/14/20 04:30 05/14/20 15:00 Albuterol Sulf Neb 2.5mg/0.5ml INHALATION 5 mg Q6HRT SAWPNA Administration Carvedilol 12.5 mg 05/13/20 14:45 05/14/20 08:44 Coreg PO 12.5 mg Q12HR SWAPNA Administration Cephalexin HCl 500 mg 05/12/20 13:00 05/14/20 12:20 Keflex Capsule PO 500 mg QID SWAPNA Administration Docusate Sodium 100 mg 05/11/20 21:00 05/14/20 08:41 Colace Capsule PO Not Given BID [facility] Famotidine 20 mg 05/12/20 09:00 05/14/20 08:46 Pepcid PO 20 mg Q12HR SWAPNA Administration Hydralazine HCl 10 mg 05/14/20 15:34 Apresoline Hcl Inj IV PUSH Q8H PRN Blood Pressure - High Hyoscyamine 0.125 mg 05/11/20 17:59 05/12/20 18:47 Levsin Tablet SUBLINGUAL 0.125 mg Q6H PRN Administration Bladder Spasm Lisinopril 20 mg 05/13/20 09:00 05/14/20 08:43 Prinivil PO 20 mg QAM SWAPNA Administration Morphine Sulfate 2 mg 05/11/20 17:59 Morphine Sulfate Inj IV PUSH Q2H PRN Pain Rated 7-10 Naloxone HCl 0.1 mg 05/11/20 17:59 Narcan IV PUSH Q2M PRN Opiate Reversal Ondansetron HCl 4 mg 05/11/20 17:59 05/12/20 10:01 Zofran Inj IV PUSH 4 mg Q12H PRN Administration Nausea And Vomiting Simvastatin 20 mg 05/14/20 12:05 05/14/20 14:06 Zocor PO 20 mg DAILY SWAPNA Administration Radiology Results: ITS Impressions Cystogram 05/11/20 17:25 IMPRESSION: Possible bladder contrast extravasation. Abdomen X-Ray 05/13/20 19:06 IMPRESSION: Unremarkable abdomen x-ray exam. Possible right nephrolithiasis. Chest X-Ray 05/14/20 13:01 IMPRESSION: 1. Airspace opacities at the lung bases, right worse than left, consistent with atelectasis versus pneumonia. 2. Small pleural effusions. Labs Labs: Laboratory Results - last 24 hr 05/14/20 05/14/20 05/14/20 08:58 09:01 09:01 WB
[2020-05-14] MEDS: hydrALAZINE HCL 20 MG/ML VIAL 10 MG IV PUSH (15:53)
--- NOTE | 2020-05-14 17:38 | PC.NURSE ---
Pt found,by [employer], giving himself an enema after being told yesterday, 05/13/2020,evening that he is not to do his own enemas on his own. I myself as well as my charge nurse went in with the pt and stated for his own safety that he can not do this on his own. He states that he just feels like he needs washed out, not that he's blocked up. Pt did have 2 bowel movements yesterday and even refused is colace this morning saying he did not need it. Stoney Enriquez aware of the refusal of the colace and Dr. Escobedo called and message left to her cell phone in regards to the 2nd self administered enema.
--- NOTE | 2020-05-14 17:49 | PC.NURSE ---
Pt instructed that he is not to clog our sinks with tissue or rinse it in the sink while trying to clean his home enema kit. Pt given a washrag to wipe item off, Pt angry that I informed him of this.
[2020-05-15 05:26] VITALS: BP 167/73; PULSE 80; RESP 16; TEMP 37.2; O2SAT 92
[2020-05-15 06:05] LABS: Basophils Percent Auto 0.4 % (0.2-1.2); Eosinophils Absolute Auto 0.2 K/mm3 (0-0.3); Eosinophils Percent Auto 2.6 % (0-4.4); Hematocrit 33.8 % (42.0-52.0); Hemoglobin 11.3 g/dL (14.0-18.0); Immature Granulocyte Absolute 0.03 K/mm3 (0.00-0.031); Immature Granulocyte Percent A 0.4 % (0-0.5); Lymphocytes Absolute Auto 1.14 K/mm3 (0.9-3.2); Lymphocytes Percent Auto 15.5 % (18.3-44.2); Mean Corpuscular HGB Conc 33.4 g/dl (32-36); Mean Corpuscular Volume 95.8 fl (80-100); Mean Platelet Volume 10.1 fl (7.4-10.4); Monocytes Absolute Auto 0.8 K/mm3 (0.1-0.6); Monocytes Percent Auto 10.9 % (2.6-8.5); Neutrophils Absolute Auto 5.2 K/mm3 (1.3-6.7); Neutrophils Percent Auto 70.2 % (45.5-73.1); Platelet Count Result 153 k/mm3 (150-375); Red Blood Count 3.53 M/mm3 (4.6-6.20); Red Cell Distribution Width 13.4 % (11.5-14.5); White Blood Count 7.4 K/mm3 (4.5-10.0)
[2020-05-15 06:17] LABS: Alanine Aminotransferase 7 U/L (4-50); Albumin Level 2.7 g/dL (3.5-5.1); Alkaline Phosphatase 56 U/L (38-126); Anion Gap 3 mmol/L (8-16); Aspartate Amino Transferase 23 U/L (17-59); Bilirubin,Total 0.5 mg/dL (0.2-1.3); Blood Urea Nitrogen 11 mg/dL (9-20); Carbon Dioxide 29 mmol/L (22-30); Chloride 103 mmol/L (98-107); Estimated Glomerular Filt Rate 59; Glucose 99 mg/dL (75-110); Magnesium 1.7 mg/dL (1.6-2.3); Potassium 3.5 mmol/L (3.4-5.0); Sodium 135 mmol/L (137-145)
[2020-05-15 07:24] VITALS: PULSE 74; RESP 16
[2020-05-15] MEDS: ALBUTEROL SULFATE NEB 2.5 MG/0.5 ML INH 5 MG INHALATION (07:24)
[2020-05-15 07:35] VITALS: PULSE 74; RESP 16
[2020-05-15 08:25] VITALS: PULSE 81
[2020-05-15] MEDS: lisinopriL 20 MG TABLET PO (08:25)
[2020-05-15] MEDS: carvediloL 12.5 MG TABLET PO (08:25)
[2020-05-15] MEDS: CEPHALEXIN 500 MG CAPSULE PO (08:25)
[2020-05-15] MEDS: FAMOTIDINE 20 MG TABLET PO (08:28)
--- NOTE | 2020-05-15 08:28 | WPDUROPN2 ---
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 Eating breakfast and waiting to void Exam : General: Yes bladder normal to inspection and Yes no CVA tenderness Scrotum: scrotum normal Objective Data Vital Signs Vital Signs: Vital Signs - 24 hr 05/14/20 08:44 05/14/20 08:55 05/14/20 09:05 Temperature Pulse Rate 86 83 85 Respiratory Rate 16 16 Blood Pressure Pulse Oximetry 05/14/20 14:00 05/14/20 15:00 05/14/20 15:10 Temperature 36.8 C Pulse Rate 76 78 82 Respiratory Rate 18 16 16 Blood Pressure 185/76 H Pulse Oximetry 95 05/14/20 17:07 05/14/20 19:18 05/14/20 19:25 Temperature Pulse Rate 71 81 Respiratory Rate 16 16 Blood Pressure 172/68 H Pulse Oximetry 05/14/20 21:49 05/14/20 22:00 05/15/20 05:26 Temperature 36.8 C 37.2 C Pulse Rate 81 77 80 Respiratory Rate 16 16 Blood Pressure 170/72 H 167/73 H Pulse Oximetry 95 92 05/15/20 07:24 05/15/20 07:35 Temperature Pulse Rate 74 74 Respiratory Rate 16 16 Blood Pressure Pulse Oximetry Intake/Output Intake/Output: Intake & Output 05/12/20 05/13/20 05/14/20 05/15/20 23:59 23:59 23:59 23:59 Intake Total 3870 3690 2490 400 Output Total 4600 1950 3150 725 Balance -730 1740 -660 -325 Meds/Results Medications: Active Medications Generic Name Dose Route Start Last Admin Trade Name Freq PRN Reason Stop Dose Admin Hydrocodone Bitart/Acetaminophen 1 tab 05/11/20 17:59 05/12/20 18:45 [place] 5-325 Mg PO 1 tab Q4H PRN Administration Pain Rated 1-6 Albuterol 5 mg 05/14/20 04:30 05/15/20 07:24 Albuterol Sulf Neb 2.5mg/0.5ml INHALATION 5 mg Q6HRT SWAPNA Administration Carvedilol 12.5 mg 05/13/20 14:45 05/14/20 21:49 Coreg PO 12.5 mg Q12HR SWAPNA Administration Cephalexin HCl 500 mg 05/12/20 13:00 05/14/20 21:50 Keflex Capsule PO 500 mg QID SWAPNA Administration Docusate Sodium 100 mg 05/11/20 21:00 05/14/20 17:47 Colace Capsule PO Not Given BID [facility] Famotidine 20 mg 05/12/20 09:00 05/14/20 21:50 Pepcid PO 20 mg Q12HR SWAPNA Administration Hydralazine HCl 10 mg 05/14/20 15:34 05/14/20 15:53 Apresoline Hcl Inj IV PUSH 10 mg Q8H PRN Administration Blood Pressure - High Hyoscyamine 0.125 mg 05/11/20 17:59 05/12/20 18:47 Levsin Tablet SUBLINGUAL 0.125 mg Q6H PRN Administration Bladder Spasm Lisinopril 20 mg 05/13/20 09:00 05/14/20 08:43 Prinivil PO 20 mg QAM SWAPNA Administration Morphine Sulfate 2 mg 05/11/20 17:59 Morphine Sulfate Inj IV PUSH Q2H PRN Pain Rated 7-10 Naloxone HCl 0.1 mg 05/11/20 17:59 Narcan IV PUSH Q2M PRN Opiate Reversal Ondansetron HCl 4 mg 05/11/20 17:59 05/12/20 10:01 Zofran Inj IV PUSH 4 mg Q12H PRN Administration Nausea And Vomiting Simvastatin 20 mg 05/14/20 12:05 05/14/20 14:06 Zocor PO 20 mg DAILY SWAPNA Administration Radiology Results: ITS Impressions Cystogram 05/11/20 17:25 IMPRESSION: Possible bladder contrast extravasation. Abdomen X-Ray 05/13/20 19:06 IMPRESSION: Unremarkable abdomen x-ray exam. Possible right nephrolithiasis. Chest X-Ray 05/14/20 13:01 IMPRESSION: 1. Airspace opacities at the lung bases, right worse than left, consistent with atelectasis versus pneumonia. 2. Small pleural effusions. Labs Labs: Laboratory Results - last 24 hr 05/14/20 05/14/20 05/14/20 08:58 09:01 09:01 WBC RBC Hgb Hct MCV MCH MCHC RDW Plt Count MPV Immature Gran % (Auto) Neut %
[2020-05-15] MEDS: SIMVASTATIN 20 MG TABLET PO (09:21)
--- NOTE | 2020-05-15 09:48 | PM.IMPN ---
Progress Note: A&P Assessment and Plan (1) Chronic combined systolic and diastolic CHF (congestive heart failure): Onset Date: ~10/2013 Code(s): I50.42 - Chronic combined systolic (congestive) and diastolic (congestive) heart failure Status: Acute Assessment and Plan: Lung exam yesterday revealed rhonchi and crackles, possibly suggesting a bit volume overload. This had significantly improved overnight with IV lasix and d/c of IVF. Patient feeling better today. PNA less likely. CXR as above. Likely atelectasis from vol overload. Afebrile, no leukocytosis. No diagnosis of COPD although is a smoker Given clinical improvement, okay for patient to be discharged from medical standpoint F/u with PCP Continue IS Encourage ambulation at home (2) Constipation: Code(s): K59.00 - Constipation, unspecified Status: Acute Assessment and Plan: With poor appetite/poor PO intake for several days. This appears to have resolved as he has had a BM and is tolerating PO again today. No change in current management Continue home regimen (3) JONATAN (acute kidney injury): Code(s): N17.9 - Acute kidney failure, unspecified Status: Acute Assessment and Plan: Acute on CKDIII; appears to be at or below his baseline with Cr today showing 1.20. 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 Status: Acute Assessment and Plan: Management per primary service (5) Anemia: Code(s): D64.9 - Anemia, unspecified Status: Acute Assessment and Plan: Appears to be at baseline Monitor (6) Gross hematuria: Code(s): R31.0 - Gross hematuria Status: Acute Assessment and Plan: Management per primary service (7) CAD in [place] artery: Onset Date: ~10/2013 Code(s): I25.10 - Atherosclerotic heart disease of [place] coronary artery without angina pectoris Status: Acute Assessment and Plan: Aspirin and plavix held per primary service Will defer resumption of these meds per primary service (8) Dyslipidemia, goal LDL below 100: Code(s): E78.5 - Hyperlipidemia, unspecified Status: Acute Assessment and Plan: LFTs WNL Continue statin (9) Essential (primary) hypertension: Code(s): I10 - Essential (primary) hypertension Status: Acute Assessment and Plan: BP more elevated the past couple of days likely due to vol overload. Anticipate improvement over the next couple of days. Continue home antihypertensives Instructed patient to continue to monitor BP at home daily and f/u with PCP as already instructed by his PCP Additional Plan Thank you for allowing the Hospitalist team to care for this patient during their stay. We will continue to follow with you. Please call with any questions Okay for discharge from Hospitalist standpoint Subjective Date/time seen: 05/15/20 09:48 This is a Hospitalist Consult Progress Note Interval history: Patient is a 79 yo M history of CAD, chronic systolic and diastolic CHF, CKD, HTN, and bladder tumor who presented to the hospital on 05/11 for planned cystoscopy, clot evacuation with fulguration, resection of bladder lesion -5mm, and cystogram for management of bladder tumor on the same day of presentation; Hospitalist service consulted for decreased appetite, poor PO intake, and no bowel movements. Patient is feeling better today. Fenton was removed and per nursing he has urinated 75 ml. No dysuria or hematuria per patient. He states his work of
--- NOTE | 2020-06-08 11:28 | PM.DS ---
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 Status: Acute (3) CKD (chronic kidney disease) stage 3, GFR 30-59 ml/min: Code(s): N18.3 - Chronic kidney disease, stage 3 (moderate) Status: Acute (4) Chronic combined systolic and diastolic CHF (congestive heart failure): Onset Date: ~10/2013 Code(s): I50.42 - Chronic combined systolic (congestive) and diastolic (congestive) heart failure Status: Acute DS: Summary Time Spent with Patient Time attestation: Total time spent providing and/or coordinating discharge services: Exam Const: General: no acute distress Limitations: No altered mental status Cardio: Rhythm: regular rhythm GI: GI Palp: Yes Soft to palpation and No Tenderness to palpation present (GI) : Male General Exam: Yes normal external exam Psych: Mental Status: mental status grossly normal DS: Data Data Completed and Pending Completed studies during hospitalization: Pending at discharge 05/11/20 16:41 Surgical [PTH] Routine Discharge Plan Discharge Consulting providers: Stoney Enriquez ; Davida Escobedo ; Kwame Gil ; Svetlana Tillman ; Marcel Garcia V. Discharging Clinician: Tim Martinez Patient Disposition: Home, Self-Care Activity: may shower Diet: as tolerated Discharge Instructions: Discharge instructions per Hospitalist Stoney Enriquez PA-C: Follow up with Urology per their instructions Follow up with PCP in 1-2 weeks or per their instructions As discussed, continue to monitor your blood pressure at least daily and report your measurements to your PCP for further management Continue your home medications as prescribed Continue using your Incentive Spirometer to improve your breathing. We encourage you to ambulate at home as well Patient Instructions: How to Stop Smoking (GEN), Cigarette Smoking and Your Health (GEN), Pain Management (DC) Follow-up/Referrals: Tim Martinez MD [Physician] - (FU with OV in 2-3 weeks) Discharge Medications: Continued B-complex with vitamin C Tablet 1 tablet PO DAILY RF: 0 Hold Instructions: Resume on 05/16/20. coenzyme Q10 [Co Q-10] 100 mg capsule 100 mg PO DAILY RF: 0 Hold Instructions: Resume on 05/16/20. ferrous gluconate [Ferate] 240 mg (27 mg iron) tablet 240 mg PO DAILY RF: 0 Hold Instructions: Resume on 05/16/20. lisinopril 20 mg tablet 20 mg PO DAILY Qty: 90 RF: 0 simvastatin 40 mg tablet 20 mg PO DAILY Qty: 90 RF: 0 carvedilol 12.5 mg tablet 12.5 mg BID RF: 0 aspirin [Aspir-Low] 81 mg tablet,delayed release (DR/EC) 81 mg PO DAILY RF: 0 Hold Instructions: Resume on 05/16/20. cholecalciferol (vitamin D3) [Vitamin D3] 25 mcg (1,000 unit) capsule 1,000 unit PO DAILY RF: 0 Hold Instructions: Resume on 05/16/20. vitamin E (dl, acetate) 100 unit capsule 100 unit PO DAILY RF: 0 Hold Instructions: Resume on 05/16/20. No Action clopidogrel 75 mg tablet See Rx Instructions .ROUTE .COMPLEX Qty: 90 RF: 3 Hold Instructions: Resume on 05/16/20. Date of admission: 05/14/20 16:38 Primary Care Provider: Aracely Tripp Admitting Provider: Tim Martinez Discharge Date/Time: 05/15/20 12:13 Attending physician on admission: Trenton Oconnor VTE Prophylaxis VTE prophylaxis: mechanical ordered
== END 2020-05-15 12:13 | disposition home or self-care (01) | DRG 669 ==
LOC: ANHSURGERY 23:26 → ANH3MED 23:26
PROVIDERS: Nurse Practitioner Adult Health; Physician Assistant; Admitting Provider Urology; PCP Family Medicine; Visit Provider Urology
PROC: 0TCB8ZZ Extirpation of Matter from Bladder, Via Natural or Artificial Opening Endoscopic (ICD-10-PCS; CPT 52001; principal; 2020-05-11 16:00)
DX: D49.4 Neoplasm of unspecified behavior of bladder; N17.9 Acute kidney failure, unspecified; I13.0 Hypertensive heart and chronic kidney disease with heart failure and stage 1 through stage 4 chronic kidney disease, or unspecified chronic kidney disease; I50.42 Chronic combined systolic (congestive) and diastolic (congestive) heart failure; R31.0 Gross hematuria; N18.3 Chronic kidney disease, stage 3 (moderate); D64.9 Anemia, unspecified; K59.00 Constipation, unspecified; I25.10 Atherosclerotic heart disease of native coronary artery without angina pectoris; E78.5 Hyperlipidemia, unspecified; F17.210 Nicotine dependence, cigarettes, uncomplicated; I44.7 Left bundle-branch block, unspecified; Z79.82 Long term (current) use of aspirin; Z79.899 Other long term (current) drug therapy; Z86.73 Personal history of transient ischemic attack (TIA), and cerebral infarction without residual deficits
CPT/HCPCS: 36415; 71046; 74019; 74430; 80048; 80053; 83735; 84443; 85014; 85018; 85025; 88305; 94640; A9270; C1769; J0360; J0690; J1940; J2370; J2405; J2704; J3010; J7120; J7121

== ENCOUNTER 2021-02-04 06:24 | Inpatient (IN) | payer MEDICARE, SELFPAY ==
[2021-02-04] VITALS (27 sets, daily range): BP systolic 119–139; BP diastolic 54–93; PULSE 61–88; RESP 14–30; TEMP 35.7–36.5; O2SAT 92–100; BMI 18.7
--- NOTE | ~2021-02-04 | XR_ITS ---
XR chest 1V portable 02/04/2021 08:01 Indication: Shortness of breath Procedure: AP portable chest Comparison: 05/14/2020 Findings: Cardiomegaly with extensive bilateral interstitial infiltration with bibasilar consolidatio n. Small pleural effusions. No pneumothorax. Impression: 1: Cardiomegaly with bilateral airspace disease which may represent a combination of edema, pneumonia and/or atelectasis. 2: Small pleural effusions. Reviewed, dictated and finalized at location [facility]. Impression: 1: Cardiomegaly with bilateral airspace disease which may represent a combinati on of edema, pneumonia and/or atelectasis. 2: Small pleural effusions.
--- NOTE | 2021-02-04 06:54 | ECG_ITS ---
Measurements Intervals [place] Rate: 76 P: 76 NV: 170 QRS: 95 QRSD: 121 T: 189 QT: 391 QTc: 441 Interpretive Statements SINUS RHYTHM FREQUENT VENTRICULAR PREMATURE COMPLEXES LEFT ATRIAL ENLARGEMENT RIGHT AXIS DEVIATION LEFT BUNDLE BRANCH BLOCK ANTEROSEPTAL INFARCT, AGE INDETERMINATE HIGH LATERAL INFARCT, AGE INDETERMINATE ABNORMAL ECG Electronically Signed On 02-04-2021 8:54:20 CDT by Jeronimo Sesay D.O.
--- NOTE | 2021-02-04 07:02 | ED.SOB ---
HPI - SOB/Dyspnea General Chief Complaint: Shortness of Breath/Dyspnea Stated Complaint: SOB Time Seen by Provider: 02/04/21 07:00 History of Present Illness HPI Narrative: 80 yo male w/ h/o Ischemic cardiomyopathy, CA, HTN, bladder cancer presents to the ED for SOB. He reports that he has had this for 2 days. Getting progressively worse. Associated with MAE and orthopnea. He has noted some ankle swelling, but not unusual. Long time smoker, never diagnosed with COPD. Found to have O2 saturation int the low 80s per EMS. On my evaluation he reports that he is feeling better and has taken off the supplemental O2. No CP, fever. Related Data Home Medications Medication Instructions Recorded Confirmed aspirin 81 mg tablet,delayed 81 mg PO DAILY 10/05/19 05/11/20 release cholecalciferol (vitamin D3) 25 1,000 unit PO DAILY 10/05/19 05/11/20 mcg (1,000 unit) capsule vitamin E (dl, acetate) 45 mg (100 100 unit PO DAILY cap 10/05/19 05/11/20 unit) capsule B-complex with vitamin C 1 tablet PO DAILY 05/02/20 05/11/20 coenzyme Q10 100 mg capsule 100 mg PO DAILY 05/04/20 05/11/20 ferrous gluconate 240 mg (27 mg 240 mg PO DAILY 05/04/20 05/11/20 iron) tablet Allergies Allergy/AdvReac Type Severity Reaction Status Date / Time No Known Allergies Allergy Verified 05/10/20 10:20 Review of Systems Review of Systems: All systems reviewed & are unremarkable except as noted in HPI and below Constitutional: Constitutional: Denies chills, Denies fever(s) and Reports weakness ENT: Reports system reviewed and no additional complaints, except as documented Cardiovascular: Cardiovascular: Denies chest pain Respiratory: Respiratory: Reports cough, Reports dyspnea and Reports wheezing Gastrointestinal: Gastrointestinal: Denies abdominal pain, Denies nausea and Denies vomiting Genitourinary: Genitourinary: Reports no additional male genitourinary complaints Musculoskeletal: Musculoskeletal: Reports no additional musculoskeletal complaints Neurologic: Reports system reviewed and no additional complaints, except as documented [facility] Past Medical History Medical History (Updated 02/04/21 @ 10:25 by Bala Perez MD) Anemia Bilateral carotid artery stenosis Bladder tumor CAD in [place] artery (~10/2013) Chronic combined systolic and diastolic CHF (congestive heart failure) (~10/2013) CKD (chronic kidney disease) stage 3, GFR 30-59 ml/min Dyslipidemia, goal LDL below 100 Essential (primary) hypertension Gross hematuria Hx of TIA (transient ischemic attack) and stroke (~05/2014) LBBB (left bundle branch block) Typhoid fever Surgical History Surgical History History of bilateral carotid endarterectomy 03/2014 and 05/2014 History of bladder surgery 03/2019 Family History Family History Other Family history of coronary artery disease Hypertension Social History Social History Smoking packs per day: 0.5 Smoking cigarettes per day: 10.0 Smoking status: Current every day smoker Tobacco type: cigarettes Second hand tobacco smoke exposure: Yes Additional smoking assessment comments: 1/2PK/DAY/ON & OFF MANY YRS Alcohol intake: former Substance use: never Substance use type: does not use Gender identity (if verbalized by the patient): Male Spiritual care concerns: No Exam Const: General: no acute distress, alert and ill appearing Nutritional Appearance: thin Orientation/consciousness: patient oriented x3 HENMT: Mouth: Yes dry mucous membranes Other: diffuse tooth decay Neck: Neck: normal visual inspection Chest: Chest palpation & inspection: no tenderness Resp: Effort & Inspection: normal respiratory effort Auscultation: clear to auscultation bilaterally, crackles bilateral at the base, no rales, rhonchi left uppe
[2021-02-04 07:41] LABS: Basophils Percent Auto 0.1 % (0.2-1.2); Eosinophils Percent Auto 0.6 % (0-4.4); Hematocrit 40.1 % (42.0-52.0); Hemoglobin 12.5 g/dL (14.0-18.0); Immature Granulocyte Absolute 0.02 K/mm3 (0.00-0.031); Immature Granulocyte Percent A 0.3 % (0-0.5); Lymphocytes Absolute Auto 0.97 K/mm3 (0.9-3.2); Lymphocytes Percent Auto 13.4 % (18.3-44.2); Mean Corpuscular HGB Conc 31.2 g/dl (32-36); Mean Corpuscular Hemoglobin 32.1 pg (26-34); Mean Corpuscular Volume 103.1 fl (80-100); Mean Platelet Volume 11.1 fl (7.4-10.4); Monocytes Absolute Auto 0.6 K/mm3 (0.1-0.6); Neutrophils Absolute Auto 5.6 K/mm3 (1.3-6.7); Neutrophils Percent Auto 77.6 % (45.5-73.1); Platelet Count Result 174 k/mm3 (150-375); Red Blood Count 3.89 M/mm3 (4.6-6.20); Red Cell Distribution Width 15.9 % (11.5-14.5); White Blood Count 7.3 K/mm3 (4.5-10.0)
[2021-02-04] MEDS: ALBUTEROL SULFATE NEB 2.5 MG/0.5 ML INH 5 MG INHALATION (07:46)
[2021-02-04] MEDS: IPRATROPIUM BR 0.02% INH SOLN 0.5 MG/2.5 ML VIAL INHALATION (07:46)
[2021-02-04 07:50] LABS: Anion Gap 7 mmol/L (8-16); Blood Urea Nitrogen 25 mg/dL (9-20); Calcium 9.1 mg/dL (8.4-10.2); Carbon Dioxide 26 mmol/L (22-30); Chloride 109 mmol/L (98-107); Estimated CRCL calculation 28 ml/min; Estimated Glomerular Filt Rate 34; Glucose 131 mg/dL (75-110); Potassium 4.4 mmol/L (3.4-5.0); Sodium 142 mmol/L (137-145)
[2021-02-04 07:50] LABS: Alveolar/Arterial O2 Gradient 97.8 mmHg; Base Excess ABG -1.1 mEq/l (+/-2.0); Carboxyhemoglobin 1.4 % THb (0-2.0); Device NASAL CANNULA; Fractional Inspired Oxygen 28 %; HCO3 ABG 21.6 mEq/l (22.0-26.0); Methemoglobin ABG 0.2 %THb (0-1.5); Modified Allen's Test Pass; Oxygen Content ABG 17.2 %vol (16.0-22.0); Oxygen Saturation ABG 94.4 % (95.0-100.0); Oxyhemoglobin 91.7 % THb (90.0-100.0); PCO2 ABG 30.4 mmHg (35.0-45.0); PO2 FiO2 Ratio Arterial Blood 2.36 %; Reduced Hemoglobin 6.7 %THb (0-5.0); Site Drawn RIGHT RADIAL; Total Hemoglobin 13.3 g/dL (12.0-18.0); pH ABG 7.469 (7.350-7.450)
[2021-02-04 07:51] LABS: INR 1.1; Prothrombin Time 14.7 Seconds (11.1-14.7)
[2021-02-04 07:52] LABS: Partial Thromboplastin Time 30.3 SECONDS (22.3-36.8)
[2021-02-04 08:05] LABS: NT Pro B Type Natriuretic Pept > 35000 pg/mL (5-100)
[2021-02-04] MEDS: FUROSEMIDE INJ 40 MG/4 ML VIAL IV PUSH ×2 (08:43→17:27)
[2021-02-04] MEDS: AMIODARONE 150 MG/D5W 100 ML 150 MG/100 ML BAG 600 MG IV CONT (08:52)
[2021-02-04] MEDS: AMIODARONE 360 MG/D5W 200 ML 360 MG/200 ML BAG 33.33 MG IV CONT (08:53)
--- NOTE | 2021-02-04 09:29 | PM.CNCAR ---
Assessment and Plan Assessment and plan (1) LBBB (left bundle branch block): Code(s): I44.7 - Left bundle-branch block, unspecified Status: Acute (2) CAD in [place] artery: Onset Date: ~10/2013 Code(s): I25.10 - Atherosclerotic heart disease of [place] coronary artery without angina pectoris Status: Acute Assessment and Plan: FIL[employer] that was not amenable to PCI in past. (3) Dyslipidemia, goal LDL below 100: Code(s): E78.5 - Hyperlipidemia, unspecified Status: Acute (4) Essential (primary) hypertension: Code(s): I10 - Essential (primary) hypertension Status: Acute Assessment and Plan: Stable. (5) Chronic combined systolic and diastolic CHF (congestive heart failure): Onset Date: ~10/2013 Code(s): I50.42 - Chronic combined systolic (congestive) and diastolic (congestive) heart failure Status: Acute Assessment and Plan: Volume overloaded. Known prior ischemic cardiomyopathy, refusing and still refuses ICD to prevent sudden cardiac arrest. Start Lasix 40 mg IV BID. Obtain echo to recheck EF. (6) Elevated troponin: Code(s): R77.8 - Other specified abnormalities of plasma proteins Status: Acute Assessment and Plan: Trend troponins. 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 On Aspirin and Plavix and statin. (7) PSVT (paroxysmal supraventricular tachycardia): Code(s): I47.1 - Supraventricular tachycardia Status: Acute Assessment and Plan: Start Amiodarone drip to prevent recurrences, will load with IV for 24 hours. (8) Hyperlipidemia: Code(s): E78.5 - Hyperlipidemia, unspecified Status: Acute History of Present Illness History of Present Illness Consult date/time: 02/04/21 09:29 Reason for consult: CHF. 80 yr old man presents to ER with progressive sob for last few days. 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 Reports in last 2-3 days he noted more sob even at rest when normally he can walk up to 2 blocks. He started coughing more also. He was taking Lozenges for cough. Feels transient palpitations occasionally. In ED he was having intermittent short runs of SVT. Amiodarone drip started. Currently he states his breathing is improved. EKG shows sinus rhythm, LBBB, anteroseptal infarct and high lateral infarct, age indeterminate. CXR shows cardiomegaly; bilateral airspace disease c/w edema, pneumonia or atelectasis, small pleural effusions. AB.46/30/66 on 28% FiO2. Cr 1.9/Cr Cl 28. Troponin 0.180. NTproBNP >35,000. Denies chest pain, orthopnea, PND, dizziness. An echo from 02/16/14 shows EF 25-30%, bicuspid aortic valve. Reason For Visit: SOB Review of Systems Review of Systems: All systems reviewed & are unremarkable except as noted in HPI and below Constitutional: Constitutional: Reports as per HPI, Denies chills and Denies fever(s) Cardiovascular: Cardiovascular: Reports as per HPI, Denies chest pain, Reports irregular heart rhythm, Denies claudication and Denies lightheadedness Respiratory: Respiratory: Reports as per HPI, Reports cough and Reports dyspnea Gastrointestinal: Gastrointestinal: Reports as per HPI and Denies abdominal pain Genitourinary: Genitourinary: Reports as per HPI and Denies dysuria Musculoskeletal: Musculoskeletal: Reports as per HPI Neurologic: Reports as per HPI, Denies dizziness and Denies syncope [facility] Past Medical History Medical History (Updated 02/04/21 @ 09:41 by Jeronimo Sesay DO) Anemia Bilateral carotid artery stenosis Bladder tumor CAD in [place] artery (~10/2013) Chronic combined systolic and diastolic CHF (congestive heart failure) (~10/2013) CKD (chronic kidney disease) stage 3, GFR 30-59 ml/min Dyslipidemia, goal LDL b
--- NOTE | 2021-02-04 11:27 | ADMGEN ---
This patient, Sarabjit Gordon, was admitted to IMU Room 214-01 @ 1127. Patient/family oriented to hospital policies and general routines including ID bracelet, bed and alarms, visiting hours, pain management, procedures, bathroom and other care routines, personal items, smoking policy, room service/diet, and visiting hours. Information on how to activate the Rapid Response Team has been discussed. Patient/Family are encouraged to report perceived risks to care and to ask questions if they do not understand what they are told or what they should do.
--- NOTE | 2021-02-04 13:41 | PM.IMHP ---
H&P: HPI History of Present Illness Date/Time: 02/04/21 13:41 patient who has a known congestive heart failure with refusal of ICD. The patient has progressively been getting more short of breath over the last few days. He has had orthopnea and dyspnea on exertion. [facility]. Patient still continues to smoke. Has not had a pulmonary function test to determine if he has COPD. EKG shows sinus rhythm, left bundle-branch block anterior will septal infarct and high lateral infarct age indeterminate. Chest x-ray shows some cardiomegaly. Bilateral airspace disease consistent with edema pneumonia or atelectasis small pleural effusion. The patient denies any chest pain at this time. The patient was placed on oxygen at 2 L at this time. Initially he was placed on a non-rebreather any EMS was activated. He was satting in the 80%. The patient stated he feels like he still needs more oxygen. SVT and was placed on an amiodarone drip per Cardiology recommendation for the next 24 hours. Heart rate is sinus rhythm in the 60s now. The patient was given a nebulizer treatment, IV Lasix, initially was given Cardizem and then placed on amiodarone drip. 12.5 and 40.1 however he has a history of anemia and this is his baseline. The patient does have a history of having iron deficiency anemia and states that he takes iron. The patient stated that he has had decreased appetite and has been losing weight. He has a history of bladder cancer with chemotherapy and surgery. Patient's ABGs today pH 7.469, pCO2 30.4, PO2 66, bicarb 21.6, and O2 saturations 94.4. This was performed on the 2 L per nasal cannula. Patient does not recall ever being told that he has chronic renal failure. However looking back 2 years ago his creatinine was anywhere from 1.4-2.0. However today is 1.9. The patient does appear to be dry, his lips are dry. Patient's troponin 0.180 for the initial and the 3rd our is 2.560. Patient's BNP is greater than 35,000. An echo has been ordered for the patient. The patient is being admitted to inpatient services on the date of service of 02/04/2021. Chief Complaint: sob Review of Systems Review of Systems: All systems reviewed & are unremarkable except as noted in HPI and below Constitutional: Constitutional: Reports as per HPI and Reports no additional constitutional complaints Eyes: Eyes: Reports as per HPI and Reports no additional eye complaints ENT: Reports system reviewed and no additional complaints, except as documented and Reports Normal hearing present Cardiovascular: Cardiovascular: Reports no additional cardiovascular complaints Respiratory: Respiratory: Reports no additional respiratory complaints and Reports no additional respiratory complaints Gastrointestinal: Gastrointestinal: Reports as per HPI and Reports no additional gastrointestinal complaints Musculoskeletal: Musculoskeletal: Reports no additional musculoskeletal complaints Integumentary/Breasts: Skin/Breast: Reports system reviewed and no additional complaints, except as docu and Reports as per HPI Neurologic: Reports system reviewed and no additional complaints, except as documented, Reports as per HPI and Reports Normal hearing present Psychiatric: Psychiatric: Reports no additional psychiatric complaints and Reports as per HPI Endocrine: Endocrine: Reports no additional endocrine complaints Hematologic/Lymphatic: Hematologic/Lymphatic: Reports no additional hematologic/lymphatic complaints Allergic/Immunologic: Allergic/Immunologic: Reports no additional allergic/immunologic complaints [facility] Past Medical History Medical History (Updated 02/04/21 @ 13:57 by Neda Luciano NP) Anemia Bilateral carotid artery stenosis Bladder tumor Excised and had chemotherapy CAD in [place] artery (~10/2013) The patient stated that he did have 2 blockages in the past that were complete and were not able to be stented. C
[2021-02-04] MEDS: AMIODARONE 360 MG/D5W 200 ML 360 MG/200 ML BAG 16.67 MG IV CONT (14:46)
[2021-02-04] MEDS: carvediloL 12.5 MG TABLET BY MOUTH (17:27)
[2021-02-04] MEDS: HEPARIN SODIUM 5,000 UNITS/ML VIAL 5000 UNITS SUB-Q (21:57)
[2021-02-05] VITALS (17 sets, daily range): BP systolic 110–142; BP diastolic 61–88; PULSE 60–69; RESP 16–22; TEMP 36.1–36.6; O2SAT 95–100
[2021-02-05] MEDS: AMIODARONE 360 MG/D5W 200 ML 360 MG/200 ML BAG 16.67 MG IV CONT (02:54)
[2021-02-05 05:46] LABS: Basophils Percent Auto 0.3 % (0.2-1.2); Eosinophils Percent Auto 0.5 % (0-4.4); Hematocrit 36.2 % (42.0-52.0); Hemoglobin 12.1 g/dL (14.0-18.0); Immature Granulocyte Absolute 0.04 K/mm3 (0.00-0.031); Immature Granulocyte Percent A 0.5 % (0-0.5); Lymphocytes Absolute Auto 1.42 K/mm3 (0.9-3.2); Mean Corpuscular HGB Conc 33.4 g/dl (32-36); Mean Corpuscular Hemoglobin 32.9 pg (26-34); Mean Corpuscular Volume 98.4 fl (80-100); Mean Platelet Volume 10.9 fl (7.4-10.4); Monocytes Absolute Auto 0.7 K/mm3 (0.1-0.6); Monocytes Percent Auto 8.1 % (2.6-8.5); Neutrophils Absolute Auto 6.6 K/mm3 (1.3-6.7); Neutrophils Percent Auto 74.6 % (45.5-73.1); Platelet Count Result 161 k/mm3 (150-375); Red Blood Count 3.68 M/mm3 (4.6-6.20); Red Cell Distribution Width 15.6 % (11.5-14.5); White Blood Count 8.9 K/mm3 (4.5-10.0)
[2021-02-05] MEDS: FUROSEMIDE INJ 40 MG/4 ML VIAL IV PUSH (05:54)
--- NOTE | 2021-02-05 06:00 | ECG_ITS ---
Measurements Intervals [place] Rate: 69 P: 73 LA: 175 QRS: 57 QRSD: 114 T: 209 QT: 430 QTc: 463 Interpretive Statements SINUS RHYTHM LEFT ATRIAL ENLARGEMENT INCOMPLETE LEFT BUNDLE BRANCH BLOCK ANTEROSEPTAL INFARCT, AGE INDETERMINATE ABNORMAL ECG Electronically Signed On 02-05-2021 8:02:13 CDT by Jeronimo Sesay D.O.
[2021-02-05 06:15] LABS: Alanine Aminotransferase 24 U/L (4-50); Albumin Level 3.3 g/dL (3.5-5.1); Alkaline Phosphatase 82 U/L (38-126); Anion Gap 6 mmol/L (8-16); Aspartate Amino Transferase 37 U/L (17-59); Bilirubin,Total 0.7 mg/dL (0.2-1.3); Blood Urea Nitrogen 33 mg/dL (9-20); Calcium 9.1 mg/dL (8.4-10.2); Carbon Dioxide 26 mmol/L (22-30); Chloride 106 mmol/L (98-107); Estimated CRCL calculation 20 ml/min; Estimated Glomerular Filt Rate 29; Glucose 109 mg/dL (75-110); Magnesium 1.9 mg/dL (1.6-2.3); Sodium 138 mmol/L (137-145)
--- NOTE | 2021-02-05 09:25 | PM.PNCARD ---
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 (3) Dyslipidemia, goal LDL below 100: Code(s): E78.5 - Hyperlipidemia, unspecified Status: Acute (4) Essential (primary) hypertension: Code(s): I10 - Essential (primary) hypertension Status: Acute Assessment and Plan: Stable. (5) Chronic combined systolic and diastolic CHF (congestive heart failure): Onset Date: ~10/2013 Code(s): I50.42 - Chronic combined systolic (congestive) and diastolic (congestive) heart failure Status: Acute Assessment and Plan: Volume overloaded. Known prior ischemic cardiomyopathy, refusing and still refuses ICD to prevent sudden cardiac arrest. Change Lasix 40 mg IV BID to Lasix 40 mg PO BID. Obtain echo to recheck EF, it was not done yesterday so it will have to be tomorrow. (6) Elevated troponin: Code(s): R77.8 - Other specified abnormalities of plasma proteins Status: Acute Assessment and Plan: Troponin peaked at 3.3. 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 On Aspirin and Plavix and statin. (7) PSVT (paroxysmal supraventricular tachycardia): Code(s): I47.1 - Supraventricular tachycardia Status: Acute Assessment and Plan: Change Amiodarone drip to Amiodarone 200 mg PO BID to prevent recurrences. Check EKG in AM to assess QT interval. (8) Hyperlipidemia: Code(s): E78.5 - Hyperlipidemia, unspecified Status: Acute Assessment and Plan: Obtain Lipid panel. Subjective Date/time seen: 02/05/21 09:25 Denies anymore sob. No chest pains. Exam Const: General: cooperative, healthy appearing and comfortable Resp: Auscultation: no crackles, no rales, no rhonchi, no wheezes and diminished lung sounds Cardio: Jugular venous distension: no JVD Rate: regular rate Rhythm: regular rhythm Heart sounds: no murmurs Peripheral pulses: dorsalis pedis present GI: GI Palp: No abdominal tenderness and Yes Soft to palpation Neuro: General: oriented to person, oriented to place and oriented to time Extrem: Right lower extremity: no edema Left lower extremity: no edema Objective Data Vital Signs Vital Signs: Vital Signs - 24 hr 02/04/21 10:04 02/04/21 10:33 02/04/21 11:16 Temperature Pulse Rate 64 64 71 Respiratory Rate 20 20 20 Blood Pressure 129/76 129/82 128/71 Pulse Oximetry 97 95 97 02/04/21 12:00 02/04/21 12:26 02/04/21 14:00 Temperature 96.2 F L Pulse Rate 66 63 Respiratory Rate 20 Blood Pressure 131/75 Pulse Oximetry 100 100 02/04/21 14:46 02/04/21 14:47 02/04/21 16:00 Temperature Pulse Rate 66 66 63 Respiratory Rate Blood Pressure Pulse Oximetry 100 02/04/21 16:29 02/04/21 17:27 02/04/21 18:00 Temperature 96.5 F L Pulse Rate 63 65 67 Respiratory Rate 21 H Blood Pressure 121/88 Pulse Oximetry 99 02/04/21 20:00 02/04/21 21:10 02/04/21 21:43 Temperature 97.7 F Pulse Rate 61 64 Respiratory Rate 16 Blood Pressure 119/54 L Pulse Oximetry 100 95 97 02/04/21 22:00 02/04/21 23:57 02/05/21 00:00 Temperature 97.4 F L Pulse Rate 66 65 65 Respiratory Rate 16 Blood Pressure 119/88 119/88 Pulse Oximetry 99 99 02/05/21 02:00 02/05/21 02:46 02/05/21 02:54 Temperature Pulse Rate 64 66 66 Respiratory Rate Blood Pressure Pulse Oximetry 02/05/21 04:00 02/05/21 06:00 02/05/21 08:00 Temperature 97.8 F 97.2 F L Pulse Rate 66 68 64 Respiratory Rate 18 18 Blood Pressure 139/71 142/79 H Pulse Oximetry 100 98 Intake/Output Intake/Output: Intake
[2021-02-05] MEDS: CHOLECALCIFEROL 1,000 UNITS TABLET 1000 UNITS PO (09:39)
[2021-02-05] MEDS: carvediloL 12.5 MG TABLET BY MOUTH ×2 (09:39→17:30)
[2021-02-05] MEDS: lisinopriL 20 MG TABLET BY MOUTH (09:39)
[2021-02-05] MEDS: SIMVASTATIN 20 MG TABLET PO (09:39)
[2021-02-05] MEDS: HEPARIN SODIUM 5,000 UNITS/ML VIAL 5000 UNITS SUB-Q ×2 (09:40→20:44)
[2021-02-05] MEDS: ASPIRIN 81 MG ENTERIC TABLET PO (09:40)
[2021-02-05] MEDS: CLOPIDOGREL BISULFATE 75 MG TABLET BY MOUTH (09:40)
[2021-02-05] MEDS: FERROUS SULFATE 324 MG TABLET PO (09:40)
[2021-02-05] MEDS: AMIODARONE HCL 200 MG TABLET PO ×2 (09:40→17:30)
--- NOTE | 2021-02-05 15:23 | PM.IMPN ---
Progress Note: A&P Assessment and Plan (1) Elevated troponin: Code(s): R77.8 - Other specified abnormalities of plasma proteins Status: Acute Assessment and Plan: Baseline 0.180. 3 hour troponin was 2.560. The patient is currently on an aspirin. Cardiology has been consulted and is aware patient's troponins. declined ICD (2) PSVT (paroxysmal supraventricular tachycardia): Code(s): I47.1 - Supraventricular tachycardia Status: Acute Assessment and Plan: The patient is on amiodarone drip per cardiology recommendation. Transitioned to oral amiodarone (3) CHF exacerbation: Qualifiers: Heart failure type: unspecified Qualified Code(s): I50.9 - Heart failure, unspecified Code(s): I50.9 - Heart failure, unspecified Status: Acute Assessment and Plan: Transition from iv to oral lasix Continue with Coreg now and monitor blood pressure. (4) JONATAN (acute kidney injury): Code(s): N17.9 - Acute kidney failure, unspecified Status: Acute Assessment and Plan: Patient has history of chronic renal failure stage 3. Continue to monitor. creat is 2.2 (5) Anemia: Code(s): D64.9 - Anemia, unspecified Status: Acute Assessment and Plan: The patient has iron deficiency anemia please continue with his iron. (6) Essential (primary) hypertension: Code(s): I10 - Essential (primary) hypertension Status: Acute Assessment and Plan: Continue with Coreg for now. (7) CKD (chronic kidney disease) stage 3, GFR 30-59 ml/min: Code(s): N18.3 - Chronic kidney disease, stage 3 (moderate) Status: Acute Assessment and Plan: Patient appears to be at his baseline will continue to monitor. (8) Hyperlipidemia: Code(s): E78.5 - Hyperlipidemia, unspecified Status: Acute Assessment and Plan: Continue with the statin. Subjective Date/time seen: 02/05/21 15:23 Interval history: Pt admitted with ischemic cardiomyopathy, SVT, history of COPD Still mildly sob but not chest pain mentioned today. Seen by cardiology transitioned to oral medications, monitor today Review of Systems Review of Systems: All systems reviewed & are unremarkable except as noted in HPI and below Exam Const: General: alert, awake and Physically active Resp: Effort & Inspection: normal respiratory effort Auscultation: wheezes and diminished lung sounds Percussion: percussion normal Cardio: Palpation: normal PMI Rate: regular rate Rhythm: regular rhythm Heart sounds: S1 normal heart sound present and S2 normal heart sound present Peripheral pulses: Peripheral pulses 2+ throughout Neuro: General: oriented to person, oriented to place, oriented to time and patient oriented x3 Cranial nerves: Yes Equal, round and reactive pupils present and Yes Normal hearing present Cognition (Neuro): normal cognition Speech: normal speech Gait exam (Neuro): Normal gait present Motor exam (neuro): 5/5 motor strength present throughout Sensory Exam: normal sensation Extrem: General: normal to inspection Right upper extremity: normal to inspection Left upper extremity: normal to inspection Right lower extremity: normal to inspection Left lower extremity: normal to inspection Psych: Appearance: grossly normal Mental Status: mental status grossly normal Speech and movement: Normal speech and movement present Affect: normal affect Attitude: cooperative Thought process: Normal thought process present Insight: Fair insight present (Psych) Judgement: Fair judgement present (Psych) Objective Data Vital Signs Vital Signs: Vital Signs - 24 hr 02/04/21 16:00 02/04/21 16:29 02/04/21 17:27 Temperature 35.8 C L Pulse Rate 63 63 65 Respiratory Rate 21 H Blood Pressure 121/88 Pulse Oximetry 100 99 02/04/21 18:00 02/04/21 20:00 02/04/21 21:10 Temperature 36.5 C Pulse Rate 67 61 64 Respiratory Rate 16 Blood Pressure
[2021-02-05] MEDS: FUROSEMIDE 40 MG TABLET PO (17:29)
[2021-02-06] VITALS (24 sets, daily range): BP systolic 107–152; BP diastolic 54–71; PULSE 60–111; RESP 12–28; TEMP 36.1–36.4; O2SAT 85–99; BMI 19.5
--- NOTE | 2021-02-06 | ECHO_ITS ---
Patient Info Name: Sarabjit Gordon Age: 80 years : 1940 Gender: Male Ht: 68 in Wt: 153 lbs BSA: 1.83 m2 HR: 75 bpm BP: 145 / 70 mmHg Technical Quality: Good Exam Date: 02/06/2021 11:55 AM Exam Location: [facility] Patient Status: Inpatient Admit Date: 02/04/2021 Staff Ordering Physician: Jeronimo Sesay DO Horn Player: Rodrigo Monzon, GABBY, RT Attending Provider: Davida Escobedo MD Referring Physician: Lázaro MARIE; Exam Type: CA echo doppler color flow Study Info Indications R06.02 - Shortness of breath Complete two-dimensional, color flow and Doppler transthoracic echocardiogram is performed. Strain analysis performed. Summary 1. Complete two-dimensional, color flow and Doppler transthoracic echocardiogram is performed. 2. Left ventricular chamber dimension is severely enlarged. 3. Left ventricular systolic function is severely reduced, estimated at 15-20%. 4. The left ventricular diastolic function is grade III diastolic dysfunction. 5. E/e' 25 is significantly elevated. 6. Global longitudinal strain is abnormal at -5.4%. 7. Left atrial chamber dimension is moderately enlarged. 8. There is moderate aortic valve sclerosis. 9. There is mild to moderate aortic valve regurgitation. 10. The mitral valve has mildly thickened leaflets. 11. There is moderate mitral valve regurgitation. 12. There is mild to moderate tricuspid valve regurgitation. 13. Severe pulmonary hypertension, estimated pulmonary arterial systolic pressure is 69 mmHg. 14. There is trace pulmonic regurgitation. 15. Dilated inferior vena cava with >50% collapse upon inspiration consistent with elevated right atrial pressure, 10 mmHg. Left Ventricle E/e' 25 is significantly elevated. Global longitudinal strain is abnormal at -5.4%. Left ventricular chamber dimension is severely enlarged. Left ventricular systolic function is severely reduced, estimated at 15-20%. The left ventricular diastolic function is grade III diastolic dysfunction. Right Ventricle Right ventricular chamber dimension is not well visualized. Left Atria Left atrial chamber dimension is moderately enlarged. Right Atria Right atrial chamber dimension is normal. Aortic Valve The aortic valve is trileaflet. There is moderate aortic valve sclerosis. There is no aortic valve stenosis. There is mild to moderate aortic valve regurgitation. Pulmonic Valve There is trace pulmonic regurgitation. Mitral Valve The mitral valve has mildly thickened leaflets. There is no mitral valve stenosis. There is moderate mitral valve regurgitation. Tricuspid Valve There is mild to moderate tricuspid valve regurgitation. Severe pulmonary hypertension, estimated pulmonary arterial systolic pressure is 69 mmHg. Pericardium/Pleural There is no pericardial effusion. Inferior Vena Cava Dilated inferior vena cava with >50% collapse upon inspiration consistent with elevated right atrial pressure, 10 mmHg. Aorta The aortic root size at the sinus of Valsalva is normal. Left Ventricular Outflow Tract Name Value Normal LVOT 2D LVOT Diameter 2.0 cm LVOT Doppler
[2021-02-06 05:38] LABS: Cholesterol 119 mg/dL (0-200); HDL Direct 32 mg/dL; Triglycerides 87 mg/dL (<150)
[2021-02-06 05:48] LABS: LDL Cholesterol Direct 78 mg/dL
--- NOTE | 2021-02-06 07:23 | ECG_ITS ---
Measurements Intervals [place] Rate: 66 P: 59 PA: 177 QRS: -5 QRSD: 120 T: 200 QT: 446 QTc: 469 Interpretive Statements SINUS RHYTHM ATRIAL AND VENTRICULAR PREMATURE COMPLEXES LEFT ATRIAL ENLARGEMENT LEFT VENTRICULAR HYPERTROPHY AND ST-T CHANGE ANTEROSEPTAL INFARCT, AGE INDETERMINATE BORDERLINE ST-T WAVE ABNORMALITY- HIGH LATERAL LEADS ABNORMAL ECG Electronically Signed On 02-06-2021 9:29:32 CDT by Jeronimo Sesay D.O.
--- NOTE | 2021-02-06 08:04 | PM.PNCARD ---
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 (3) Essential (primary) hypertension: Code(s): I10 - Essential (primary) hypertension Status: Acute Assessment and Plan: Stable. (4) Chronic combined systolic and diastolic CHF (congestive heart failure): Onset Date: ~10/2013 Code(s): I50.42 - Chronic combined systolic (congestive) and diastolic (congestive) heart failure Status: Acute Assessment and Plan: Volume overloaded resolved. Known prior ischemic cardiomyopathy, refusing and still refuses ICD to prevent sudden cardiac arrest. Discussed VT episode but he is not interested in ICD. On Coreg, lisinopril. On Lasix 40 mg PO BID. Obtain echo to recheck EF. After echo, if remains stable, may d/c home and f/u with me in 1-2 weeks. (5) Elevated troponin: Code(s): R77.8 - Other specified abnormalities of plasma proteins Status: Acute Assessment and Plan: Trend troponins. 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 On Aspirin and Plavix and statin. (6) PSVT (paroxysmal supraventricular tachycardia): Code(s): I47.1 - Supraventricular tachycardia Status: Acute Assessment and Plan: Loaded on Amiodarone. On Amiodarone 200 mg BID. (7) Hyperlipidemia: Code(s): E78.5 - Hyperlipidemia, unspecified Status: Acute Assessment and Plan: On statin. (8) PVT (paroxysmal ventricular tachycardia): Code(s): I47.2 - Ventricular tachycardia Status: Acute Assessment and Plan: 02/05/21 09:46 had 30-35 beat run of VT. (9) Tobacco abuse: Code(s): Z72.0 - Tobacco use Status: Acute Assessment and Plan: Counseled regarding smoking cessation. (10) COPD (chronic obstructive pulmonary disease): Code(s): J44.9 - Chronic obstructive pulmonary disease, unspecified Status: Acute Assessment and Plan: May benefit from inhalers. Will leave this up to hospitalist. Subjective Date/time seen: 02/06/21 08:04 Reports feeling some chest tightness and had relief with breathing treatment in ER, but has not had any on floor per patient. Exam Const: General: cooperative, healthy appearing and comfortable Resp: Auscultation: no crackles, no rales, no rhonchi, no wheezes and diminished lung sounds Cardio: Jugular venous distension: no JVD Rate: regular rate Rhythm: regular rhythm Heart sounds: no murmurs Peripheral pulses: dorsalis pedis present GI: GI Palp: No abdominal tenderness and Yes Soft to palpation Neuro: General: oriented to person, oriented to place and oriented to time Extrem: Right lower extremity: no edema Left lower extremity: no edema Objective Data Vital Signs Vital Signs: Vital Signs - 24 hr 02/05/21 10:00 02/05/21 12:00 02/05/21 14:00 Temperature 97.9 F Pulse Rate 65 60 63 Respiratory Rate 18 Blood Pressure 110/61 Pulse Oximetry 98 02/05/21 16:00 02/05/21 18:00 02/05/21 18:54 Temperature 97.2 F L 97.3 F L Pulse Rate 65 69 64 Respiratory Rate 22 H 16 Blood Pressure 133/61 138/66 Pulse Oximetry 98 98 02/05/21 20:00 02/05/21 22:00 02/05/21 23:32 Temperature 97 F L Pulse Rate 63 62 65 Respiratory Rate 16 Blood Pressure 137/75 Pulse Oximetry 98 97 02/06/21 00:00 02/06/21 02:00 02/06/21 03:32 Temperature Pulse Rate 63 66 Respiratory Rate Blood Pressure Pulse Oximetry 98 98 02/06/21 03:42 02/06/21 04:00 02/06/21 06:00 Temperature 97 F L Pulse Rate 63 62 67 Respiratory Rate 16 Blood Pressure 145/70 H Pulse Oximetry 95
[2021-02-06] MEDS: FUROSEMIDE 40 MG TABLET PO ×2 (08:38→17:22)
[2021-02-06] MEDS: carvediloL 12.5 MG TABLET BY MOUTH ×2 (08:38→17:22)
[2021-02-06] MEDS: CLOPIDOGREL BISULFATE 75 MG TABLET BY MOUTH (08:38)
[2021-02-06] MEDS: ASPIRIN 81 MG ENTERIC TABLET PO (08:38)
[2021-02-06] MEDS: AMIODARONE HCL 200 MG TABLET PO ×2 (08:38→17:22)
[2021-02-06] MEDS: SIMVASTATIN 20 MG TABLET PO (08:38)
[2021-02-06] MEDS: lisinopriL 20 MG TABLET BY MOUTH (08:38)
[2021-02-06] MEDS: FERROUS SULFATE 324 MG TABLET PO (08:38)
--- NOTE | 2021-02-06 10:33 | WPDCDIQUERY2 ---
CDI Query Clarification Request -Elevated troponins have been documented by hospitalist -Troponins 0.180, 2.560, 3.340, 1.790 - Bundle branch block which was thought to be acute. 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 Please clarify if type II infarct was ruled in or ruled out. <Aline Hickey RN - Last Filed: 02/06/21 10:39> UNSURE <Davida Escobedo MD - Last Filed: 02/10/21 08:28>
--- NOTE | 2021-02-06 14:29 | HOMEO2EVAL ---
Evaluation was performed at [facility] Home Oxygen Evaluation RC: Home Oxygen (O2) Evaluation Start: 02/06/21 10:11 Freq: ONCE Status: Active Protocol: RPE Activity Type Activity Date Activity User E-Sign Co-Sign Detail Recorded Client Recorded Date Recorded By Document 02/06/21 14:00 LIDIA [email or web address] 02/06/21 14:29 LIDIA Document 02/06/21 14:03 LIDIA [email or web address] 02/06/21 14:29 LIDIA Document 02/06/21 14:05 LIDIA [email or web address] 02/06/21 14:29 LIDIA Document 02/06/21 14:07 LIDIA [email or web address] 02/06/21 14:29 LIDIA Document 02/06/21 14:10 LIDIA [email or web address] 02/06/21 14:29 LIDIA Document 02/06/21 14:20 LIDIA [email or web address] 02/06/21 14:29 LIDIA 02/06/21 02/06/21 02/06/21 14:00 14:03 14:05 Home O2 Evaluation Test Phase Resting Resting Exercise Oxygen Delivery Room Air Nasal Cannula Nasal Cannula Oxygen Flow Rate (L/min) 1 1 Pulse Oximetry (90-100 %) 87 L 91 85 L Pulse Rate (60-100 beats/min) Ambulation Distance (feet) Home Oxygen Evaluation Comments Treatment Charges O2 Evaluation - Inpatient 02/06/21 02/06/21 02/06/21 14:07 14:10 14:20 Home O2 Evaluation Test Phase Exercise Exercise Resting Oxygen Delivery Nasal Cannula Nasal Cannula Nasal Cannula Oxygen Flow Rate (L/min) 2 3 1 Pulse Oximetry (90-100 %) 87 L 93 93 Pulse Rate (60-100 beats/min) 111 H 81 Ambulation Distance (feet) 400 Home Oxygen Evaluation Comments PT REQUIRES 1 L AT REST AND 3 L WITH ACTIVITY Treatment Charges
[2021-02-06] MEDS: ALBUTEROL SULFATE NEB 2.5 MG/0.5 ML INH INHALATION ×2 (14:30→20:46)
--- NOTE | 2021-02-06 14:39 | PCRCNOTE ---
HOME O2 NEEDED AT 1 LITER AT REST AND 3 LITER WITH ACTIVITY. WILL DROP OFF TANK TO ROOM FOR TRANSPORT HOME. SET UP WITH [facility]. PHONE # [phone]. PT HAS BEEN INSTRUCTED TO CALL WHEN HE IS DISCHARGED HOME, PHONE # IS ON TANK AND ON PAPERWORK/CARD IN THEN BAG ATTACHED TO TANK. RN NOTIFIED.
--- NOTE | 2021-02-06 16:50 | PM.IMPN ---
Progress Note: A&P Assessment and Plan (1) Elevated troponin: Code(s): R77.8 - Other specified abnormalities of plasma proteins Status: Acute Assessment and Plan: pt declined ICD (2) PSVT (paroxysmal supraventricular tachycardia): Code(s): I47.1 - Supraventricular tachycardia Status: Acute Assessment and Plan: The patient is on amiodarone drip per cardiology recommendation. Transitioned to oral amiodarone (3) CHF exacerbation: Qualifiers: Heart failure type: unspecified Qualified Code(s): I50.9 - Heart failure, unspecified Code(s): I50.9 - Heart failure, unspecified Status: Acute Assessment and Plan: Transition from iv to oral lasix Continue with Coreg now and monitor blood pressure. (4) JONATAN (acute kidney injury): Code(s): N17.9 - Acute kidney failure, unspecified Status: Acute Assessment and Plan: Patient has history of chronic renal failure stage 3. Continue to monitor. creat is 2.2 (5) Anemia: Code(s): D64.9 - Anemia, unspecified Status: Acute Assessment and Plan: The patient has iron deficiency anemia please continue with his iron. (6) Essential (primary) hypertension: Code(s): I10 - Essential (primary) hypertension Status: Acute Assessment and Plan: Continue with Coreg for now. (7) CKD (chronic kidney disease) stage 3, GFR 30-59 ml/min: Code(s): N18.3 - Chronic kidney disease, stage 3 (moderate) Status: Acute Assessment and Plan: Patient appears to be at his baseline will continue to monitor. (8) Hyperlipidemia: Code(s): E78.5 - Hyperlipidemia, unspecified Status: Acute Assessment and Plan: Continue with the statin. (9) COPD (chronic obstructive pulmonary disease): Code(s): J44.9 - Chronic obstructive pulmonary disease, unspecified Status: Acute Assessment and Plan: Pt is to be discharged on 1 liter of oxygen , breathing treatments added today hopeful dc tomorrow. Subjective Date/time seen: 02/06/21 16:50 Interval history: Pt admitted with ischemic cardiomyopathy, SVT, history of COPD. Still mildly sob but not chest pain mentioned today. Seen by cardiology transitioned to oral medications, monitor today. He has a history of CAD with RADIOLOGY TECH, bilateral carotid endarerectomies, sytolic heart failure declining ICD. Pt does not want another ICD. Echo is EF 25-30%, bicuspid aortic valve. Pt is very wheezy today, breathing treatments ordered. Review of Systems Review of Systems: All systems reviewed & are unremarkable except as noted in HPI and below Exam Const: General: cooperative and comfortable Orientation/consciousness: oriented to person, oriented to place, oriented to time and patient oriented x3 Limitations: no limitations Resp: Effort & Inspection: normal respiratory effort Auscultation: wheezes Percussion: percussion normal Cardio: Palpation: normal PMI Rate: regular rate Rhythm: regular rhythm Heart sounds: S1 normal heart sound present and S2 normal heart sound present Peripheral pulses: Peripheral pulses 2+ throughout GI: Inspection: normal to inspection Auscultation: normal bowel sounds Skin: Nails: normal Neuro: General: oriented to person, oriented to place, oriented to time and patient oriented x3 Cranial nerves: Yes Equal, round and reactive pupils present and Yes Normal hearing present Cognition (Neuro): normal cognition Speech: normal speech Gait exam (Neuro): Normal gait present Motor exam (neuro): 5/5 motor strength present throughout Sensory Exam: normal sensation Extrem: General: normal to inspection Right upper extremity: normal to inspection Left upper extremity: normal to inspection Right lower extremity: normal to inspection Left lower extremity: normal to inspection Psych: Appearance: grossly normal Mental Status: mental status grossly normal Speech and movement: Normal speech and
[2021-02-06] MEDS: HEPARIN SODIUM 5,000 UNITS/ML VIAL 5000 UNITS SUB-Q (20:29)
[2021-02-07] VITALS (7 sets, daily range): BP systolic 122–142; BP diastolic 52–69; PULSE 61–118; RESP 16–22; TEMP 35.6–36.2; O2SAT 96–97
[2021-02-07 05:09] LABS: Hematocrit 35.8 % (42.0-52.0); Hemoglobin 11.6 g/dL (14.0-18.0); Mean Corpuscular HGB Conc 32.4 g/dl (32-36); Mean Corpuscular Hemoglobin 32.8 pg (26-34); Mean Corpuscular Volume 101.1 fl (80-100); Platelet Count Result 159 k/mm3 (150-375); Red Blood Count 3.54 M/mm3 (4.6-6.20); Red Cell Distribution Width 15.5 % (11.5-14.5); White Blood Count 6.8 K/mm3 (4.5-10.0)
[2021-02-07 05:23] LABS: Anion Gap 1 mmol/L (8-16); Blood Urea Nitrogen 43 mg/dL (9-20); Calcium 8.6 mg/dL (8.4-10.2); Carbon Dioxide 35 mmol/L (22-30); Chloride 102 mmol/L (98-107); Estimated CRCL calculation 23 ml/min; Estimated Glomerular Filt Rate 32; Glucose 90 mg/dL (75-110); Potassium 3.8 mmol/L (3.4-5.0); Sodium 138 mmol/L (137-145)
--- NOTE | 2021-02-07 07:12 | ECG_ITS ---
Measurements Intervals [place] Rate: 62 P: 79 NV: 181 QRS: 11 QRSD: 118 T: 220 QT: 466 QTc: 476 Interpretive Statements SINUS RHYTHM LEFT ATRIAL ENLARGEMENT INTRAVENTRICULAR CONDUCTION DELAY ANTEROSEPTAL INFARCT, AGE INDETERMINATE BORDERLINE ST-T WAVE ABNORMALITY- INF/HIGH LAT LEADS ABNORMAL ECG Electronically Signed On 02-07-2021 9:27:27 CDT by Jeronimo Sesay D.O.
[2021-02-07] MEDS: FERROUS SULFATE 324 MG TABLET PO (08:43)
[2021-02-07] MEDS: FUROSEMIDE 40 MG TABLET PO (08:44)
[2021-02-07] MEDS: ASPIRIN 81 MG ENTERIC TABLET PO (08:44)
[2021-02-07] MEDS: AMIODARONE HCL 200 MG TABLET PO (08:44)
[2021-02-07] MEDS: lisinopriL 20 MG TABLET BY MOUTH (08:44)
[2021-02-07] MEDS: CHOLECALCIFEROL 1,000 UNITS TABLET 1000 UNITS PO (08:44)
--- NOTE | 2021-02-07 08:44 | PM.PNCARD ---
Progress Note: A&P Assessment and Plan (1) LBBB (left bundle branch block): Code(s): I44.7 - Left bundle-branch block, unspecified Status: Acute (2) CAD in [place] artery: Onset Date: ~10/2013 Code(s): I25.10 - Atherosclerotic heart disease of [place] coronary artery without angina pectoris Status: Chronic Assessment and Plan: [employer]IAN that was not amenable to PCI in past. (3) Essential (primary) hypertension: Code(s): I10 - Essential (primary) hypertension Status: Acute Assessment and Plan: Stable. (4) Chronic combined systolic and diastolic CHF (congestive heart failure): Onset Date: ~10/2013 Code(s): I50.42 - Chronic combined systolic (congestive) and diastolic (congestive) heart failure Status: Acute Assessment and Plan: Volume overloaded resolved. Known prior ischemic cardiomyopathy, refusing and still refuses ICD to prevent sudden cardiac arrest. Discussed VT episodes but he is not interested in ICD. On Coreg, lisinopril. On Lasix 40 mg PO BID. Echo shows worsened EF at 15-20%, grade III diastolic dysfunction, mod MR and severe pulm hypertension. Discussed echo results with patient. May d/c home from cardiology standpoint and f/u with me in 1-2 weeks. (5) Elevated troponin: Code(s): R77.8 - Other specified abnormalities of plasma proteins Status: Acute Assessment and Plan: Trend troponins. I believe this to be a type II infarct with known CAD/[employer]IAN with CHF and CKD. On Aspirin and Plavix and statin. (6) PSVT (paroxysmal supraventricular tachycardia): Code(s): I47.1 - Supraventricular tachycardia Status: Acute Assessment and Plan: Loaded on Amiodarone. On Amiodarone 200 mg BID. (7) Hyperlipidemia: Code(s): E78.5 - Hyperlipidemia, unspecified Status: Acute Assessment and Plan: On statin. (8) PVT (paroxysmal ventricular tachycardia): Code(s): I47.2 - Ventricular tachycardia Status: Acute Assessment and Plan: 02/05/21 09:46 had 30-35 beat run of VT. 02/06/21 Nurse called to report 1 minute of VT. Asymptomatic. (9) Tobacco abuse: Code(s): Z72.0 - Tobacco use Status: Acute Assessment and Plan: Counseled regarding smoking cessation. (10) COPD (chronic obstructive pulmonary disease): Code(s): J44.9 - Chronic obstructive pulmonary disease, unspecified Status: Acute Assessment and Plan: On oxygen and inhalers with improvement in symptoms. Subjective Date/time seen: 02/07/21 08:44 Denies palpitations. Denies chest pain or sob. Reports inhalers made a big difference in his breathing. Exam Const: General: cooperative, healthy appearing and comfortable Resp: Auscultation: no crackles, no rales, no rhonchi, no wheezes and diminished lung sounds Cardio: Jugular venous distension: no JVD Rate: regular rate Rhythm: regular rhythm Heart sounds: no murmurs Peripheral pulses: dorsalis pedis present GI: GI Palp: No abdominal tenderness and Yes Soft to palpation Neuro: General: oriented to person, oriented to place and oriented to time Extrem: Right lower extremity: no edema Left lower extremity: no edema Objective Data Vital Signs Vital Signs: Vital Signs - 24 hr 02/06/21 10:01 02/06/21 12:00 02/06/21 14:00 Temperature 97.4 F L Pulse Rate 61 73 Respiratory Rate 28 H Blood Pressure 126/63 Pulse Oximetry 91 91 87 L 02/06/21 14:03 02/06/21 14:05 02/06/21 14:07 Temperature Pulse Rate Respiratory Rate Blood Pressure Pulse Oximetry 91 85 L 87 L 02/06/21 14:10 02/06/21 14:20 02/06/21 14:33 Temperature Pulse Rate 111 H 81 108 H Respiratory Rate 20 Blood Pressure Pulse Oximetry 93 93 02/06/21 14:40 02/06/21 16:00 02/06/21 18:00 Temperature 97.6 F Pulse Rate 87 67 78 Respiratory Rate 20 20 Blood Pressure 133/59 L Pulse Oximetry 97 02/06/21 20:00 02/06/21 20:44
[2021-02-07] MEDS: CLOPIDOGREL BISULFATE 75 MG TABLET BY MOUTH (08:45)
[2021-02-07] MEDS: carvediloL 12.5 MG TABLET BY MOUTH (08:45)
[2021-02-07] MEDS: HEPARIN SODIUM 5,000 UNITS/ML VIAL 5000 UNITS SUB-Q (08:45)
[2021-02-07] MEDS: SIMVASTATIN 20 MG TABLET PO (08:45)
--- NOTE | 2021-02-07 10:59 | PM.DS ---
DS: Admitting Diagnosis Admitting Diagnosis Admitting Diagnosis: Shortness of breath DS: Discharge Diagnosis Discharge Diagnosis (1) Elevated troponin: Code(s): R77.8 - Other specified abnormalities of plasma proteins Status: Acute Assessment and Plan: Most likely related to demand ischemia secondary to CHF follow-up with cardiology as outpatient (2) PSVT (paroxysmal supraventricular tachycardia): Code(s): I47.1 - Supraventricular tachycardia Status: Acute Assessment and Plan: Treated with amiodarone drip per cardiology recommendation. Transitioned to oral amiodarone patient refused ICD (3) CHF exacerbation: Qualifiers: Heart failure type: unspecified Qualified Code(s): I50.9 - Heart failure, unspecified Code(s): I50.9 - Heart failure, unspecified Status: Acute Assessment and Plan: Cardiology recommendation appreciated patient has worsening systolic CHF patient refused ICD patient will be discharged on oral Lasix. (4) JONATAN (acute kidney injury): Code(s): N17.9 - Acute kidney failure, unspecified Status: Acute Assessment and Plan: History of chronic renal failure stage 3 avoid nephrotoxic medication monitor CMP in 1 week (5) Anemia: Code(s): D64.9 - Anemia, unspecified Status: Acute Assessment and Plan: The patient has iron deficiency anemia please continue with his iron. (6) Essential (primary) hypertension: Code(s): I10 - Essential (primary) hypertension Status: Acute Assessment and Plan: Continue with Coreg for now. (7) CKD (chronic kidney disease) stage 3, GFR 30-59 ml/min: Code(s): N18.3 - Chronic kidney disease, stage 3 (moderate) Status: Acute Assessment and Plan: Patient appears to be at his baseline will continue to monitor. Monitor CMP in 1 week (8) Hyperlipidemia: Code(s): E78.5 - Hyperlipidemia, unspecified Status: Acute Assessment and Plan: Continue with the statin. (9) COPD (chronic obstructive pulmonary disease): Code(s): J44.9 - Chronic obstructive pulmonary disease, unspecified Status: Acute Assessment and Plan: Pt is to be discharged on 1 liter of oxygen , breathing treatments added today hopeful dc tomorrow. DS: Summary Hospital Course Hospital Course: Patient was admitted with shortness of breath was found to have CHF exacerbation and SVT cardiology was consulted patient was treated with amiodarone drip and IV Lasix patient will be discharged on oral amiodarone oral Lasix follow-up CMP and CBC in 1 week patient also refused AICD Time Spent with Patient Time attestation: Total time spent providing and/or coordinating discharge services: DS: Data Data Completed and Pending Labs on day of discharge: Labs from last 24 hours 02/07/21 02/07/21 04:42 04:42 WBC 6.8 RBC 3.54 L Hgb 11.6 L Hct 35.8 L MCV 101.1 H MCH 32.8 MCHC 32.4 RDW 15.5 H Plt Count 159 MPV 11.0 H Sodium 138 Potassium 3.8 Chloride 102 Carbon Dioxide 35 H Anion Gap 1 L BUN 43 H D Creatinine 2.00 H Estim Creat Clear Calc 23 Estimated GFR 32 L Glucose 90 Calcium 8.6 Discharge Plan Discharge Attending physician on discharge: Sayra James M.A. Consulting providers: Jeronimo Sesay Discharging Clinician: Sayra James M.A. Patient Disposition: Home Health Service Activity: no preference Diet: heart healthy Patient Instructions: Antibiotic Form, How to Stop Smoking (DC) Stand Alone Forms: General Discharge Information Follow-up/Referrals: Jeronimo Sesay DO [Physician] - Aracely Tripp MD [Primary Care Provider] - Discharge Medications: New amiodarone [Pacerone] 200 mg Tablet 200 mg PO BID Qty: 60 RF: 0 furosemide 40 mg Tablet 40 mg PO BID Qty: 60 RF: 0 Continued B-complex with vitamin C Tablet 1 tablet PO DAILY RF: 0
--- NOTE | 2021-02-07 12:04 | PCCPR ---
[facility] flyer was given to patient with discharge information.
[2021-02-07] MEDS: VITAMIN B COMPLEX/VIT C CAPSULE 1 EACH PO (13:14)
== END 2021-02-07 13:45 | disposition home or self-care (01) | DRG 308 ==
LOC: ANHED 10:25 → ANHIMU 12:08
PROVIDERS: Internal Medicine Cardiovascular Disease; Nurse Practitioner; Admitting Provider Family Medicine; Emergency Provider Emergency Medicine; PCP Family Medicine; Visit Provider Internal Medicine
DX: I47.1 Supraventricular tachycardia (principal); I50.23 Acute on chronic systolic (congestive) heart failure; I13.0 Hypertensive heart and chronic kidney disease with heart failure and stage 1 through stage 4 chronic kidney disease, or unspecified chronic kidney disease; N17.9 Acute kidney failure, unspecified; I24.8 Other forms of acute ischemic heart disease; R77.8 Other specified abnormalities of plasma proteins; I44.7 Left bundle-branch block, unspecified; I47.2 Ventricular tachycardia; I25.10 Atherosclerotic heart disease of native coronary artery without angina pectoris; I25.5 Ischemic cardiomyopathy; N18.30 Chronic kidney disease, stage 3 unspecified; D50.9 Iron deficiency anemia, unspecified; J44.9 Chronic obstructive pulmonary disease, unspecified; E78.5 Hyperlipidemia, unspecified; F17.210 Nicotine dependence, cigarettes, uncomplicated; Z79.82 Long term (current) use of aspirin; Z79.899 Other long term (current) drug therapy; Z86.73 Personal history of transient ischemic attack (TIA), and cerebral infarction without residual deficits
CPT/HCPCS: 36415; 36600; 71045; 80048; 80053; 80061; 82375; 82805; 83050; 83735; 83880; 84443; 84484; 85025; 85027; 85610; 85730; 93005; 93306; 94618; 94640; 96365; 96375; 99291; A9270; J0282; J1644; J1940

== ENCOUNTER 2021-03-27 13:42 | Outpatient (CLI) | payer MEDICARE, SELFPAY ==
--- NOTE | ~2021-03-27 | US_ITS ---
EXAMINATION: US venous doppler [facility] DATE: 03/27/2021 14:29 INDICATION: Left lower limb swelling. TECHNIQUE: Grayscale ultrasound images without and with compression and Doppler ultrasound images of the left lower extremity veins were obtained. COMPARISON: None. FINDINGS: The visualized portions of left common femoral vein, profunda (deep) femoral vein, femoral vein, popl iteal vein, peroneal veins, posterior tibial veins, and greater saphenous vein outflow are patent. IMPRESSION: 1. No deep venous thrombosis. Reviewed, dictated and finalized at location A.
== END 2021-03-27 13:43 | disposition home or self-care (01) ==
PROVIDERS: PCP Family Medicine; Visit Provider Nurse Practitioner Family
DX: R22.42 Localized swelling, mass and lump, left lower limb (principal)
CPT/HCPCS: 93971

== ENCOUNTER 2021-04-06 13:20 | Outpatient (CLI) | payer MEDICARE, SELFPAY ==
[2021-04-06 14:00] LABS: Prothrombin Time 13.1 Seconds (11.1-14.7)
== END 2021-04-06 13:21 | disposition home or self-care (01) ==
LOC: ANHSURGERY 13:21
PROVIDERS: PCP Family Medicine; Visit Provider Urology
DX: Z01.818 Encounter for other preprocedural examination (principal); D49.4 Neoplasm of unspecified behavior of bladder
CPT/HCPCS: 36415; 85610; 85730; 87086

== ENCOUNTER 2021-04-11 02:34 | Day surgery (SDC) | payer MEDICARE, SELFPAY ==
[2021-04-04 15:49] VITALS: BMI 19.8
--- NOTE | 2021-04-10 14:17 | WPDANESEPPF ---
Anes - Initial Pre Proc Eval Procedure: Operation Date: 04/11/21 08:30 Proposed Procedures p Trans Urethral Resection Bladder Tumor - Tim Martinez MD Date/Time: 04/10/21 14:17 Surgeon: Tim Martinez MD Pre Op Diagnosis: bladder CA, gross hematuria Patient Data Age: 80 Gender: M Height: 1.73 m Weight: 58.99 kg Allergies Allergy/AdvReac Type Severity Reaction Status Date / Time No Known Allergies Allergy Verified 04/11/21 06:42 Home Medications Medication Instructions Recorded Confirmed Type aspirin 81 mg tablet,delayed 81 mg PO DAILY 10/05/19 04/11/21 History release cholecalciferol (vitamin D3) 25 1,000 unit PO DAILY 10/05/19 04/11/21 History mcg (1,000 unit) capsule vitamin E (dl, acetate) 45 mg (100 100 unit PO DAILY cap 10/05/19 04/11/21 History unit) capsule B-complex with vitamin C 1 tablet PO DAILY 05/02/20 04/11/21 History coenzyme Q10 100 mg capsule 100 mg PO DAILY 05/04/20 04/11/21 History simvastatin 40 mg tablet 20 mg PO DAILY #90 tablet 10/24/20 04/11/21 Rx albuterol sulfate 1 inh INHALATION QID PRN #8.5 g 02/07/21 04/11/21 Rx amiodarone 200 mg tablet 200 mg PO DAILY #180 tablet 03/13/21 04/11/21 Rx clopidogrel 75 mg tablet 75 mg PO DAILY #90 tablet 03/13/21 04/11/21 Rx lisinopril 20 mg tablet 20 mg PO DAILY #90 tablet 03/13/21 04/11/21 Rx furosemide 40 mg PO BID 04/04/21 04/11/21 History carvedilol 12.5 mg tablet 12.5 mg PO Q12H #180 tablet 04/10/21 04/11/21 Rx Patient hx anesthesia problems: none Family hx anesthesia problems: none PMFSH Past Medical History Medical History Anemia Bilateral carotid artery stenosis Bladder tumor Excised and had chemotherapy CAD in [place] artery (~10/2013) The patient stated that he did have 2 blockages in the past that were complete and were not able to be stented. Chronic combined systolic and diastolic CHF (congestive heart failure) (~10/2013) CKD (chronic kidney disease) stage 3, GFR 30-59 ml/min Dyslipidemia, goal LDL below 100 Essential (primary) hypertension Gross hematuria Hx of TIA (transient ischemic attack) and stroke (~05/2014) LBBB (left bundle branch block) Typhoid fever Surgical History Surgical History H/O cardiac catheterization History of bilateral carotid endarterectomy 03/2014 and 05/2014 History of bladder surgery 03/2019 Family History Family History Father Heart attack Mother Heart attack Sibling Hypertension Other Family history of coronary artery disease Social History Social History Social History: Patient still continues to smoke a half pack a cigarettes a day on and off for many years. The patient denies any alcohol marijuana or illicit drugs. The patient has 2 sons and desires to have them as his durable power securities attorney for healthcare. The patient desires to be a full code. The patient lives home alone. The patient is retired from the [employer] company and he is . Smoking packs per day: 0.5 Smoking cigarettes per day: 10.0 Years smoked: 38 Smoking pack-years: 19.00 Smoking status: Current every day smoker Tobacco type: cigarettes Second hand tobacco smoke exposure: Yes Additional smoking assessment comments: 1/2PK/DAY/ON & OFF MANY YRS Alcohol intake: never Substance use: never Substance use type: does not use Living arrangements: alone Gender identity (if verbalized by the patient): Male Spiritual care concerns: No Anes - Eval Final PreProcedure Day of Procedure 04/10/21 14:17 Patient weight: normal Heart: regular rate and rhythm Lungs: clear to auscultation and normal air movement Airway: Mallampati scale class II Neurological: alert and oriented Last oral intake: >/= 8 hours ASA classification: I
[2021-04-11] VITALS (8 sets, daily range): BP systolic 114–155; BP diastolic 52–69; PULSE 53–64; RESP 12–20; TEMP 36.8–37; O2SAT 98–100
[2021-04-11] MEDS: LACTATED RINGERS 1,000 ML 30 ML IV CONT (07:05)
--- NOTE | 2021-04-11 07:14 | WPDHPUPDATE1 ---
History and Physical Update Update Date/Time: 04/11/21 07:14 History and Physical has been reviewed, including an updated exam of the patient. There are NO changes in the patient's condition. Risks, benefits, and alternatives have been discussed and questions answered. Patient agrees to proceed with procedure. Proceed with turbt
[2021-04-11] MEDS: ceFAZolin 2 GM/D5W 50 ML 2 GM/50 ML BAG IVPB (08:30)
[2021-04-11] MEDS: LIDOCAINE HCL 2% GEL UROJET 10 ML PKG MUCOUS MEM (08:50)
--- NOTE | 2021-04-11 08:58 | P.OP_ITS ---
Procedure Note - Detailed Date of Procedure 04/11/21 Pre-op Diagnosis bladder CA, gross hematuria Post-op Diagnosis same Procedure Performed Cystoscopy, transurethral resection of medium bladder tumor 3-4 cm area Surgeon Tim Martinez MD Anesthesia general Description of Procedure patient is taken to the operative suite and correctly identified. Once anesthesia was obtained he was placed in the dorsal lithotomy position and prepped and draped usual sterile fashion. [place] [place] resectoscope sheath was inserted in the bladder. The bladder has a lesion along the posterior wall on the left measuring approximately 8-9 mm. This was resected. He also had an area along the anterior wall from 11 o'clock position to 2 o'clock position. We went ahead and resected this. It accomplished at least 3- 4 cm. Hemostasis was achieved using electrocautery. 2% viscous lidocaine was inserted and the patient was taken recovery stable condition. He is instructed call for the path results in 1 week's time. Drains No Packing No Pathology yes Complications No immediate complications Condition stable Disposition PACU
== END 2021-04-11 11:08 | disposition home or self-care (01) ==
PROVIDERS: PCP Family Medicine; Visit Provider Urology
PROC: 0TBB8ZZ Excision of Bladder, Via Natural or Artificial Opening Endoscopic (ICD-10-PCS; CPT 52235; principal; 2021-04-11 08:30)
DX: C67.3 Malignant neoplasm of anterior wall of bladder (principal); C67.4 Malignant neoplasm of posterior wall of bladder; I13.0 Hypertensive heart and chronic kidney disease with heart failure and stage 1 through stage 4 chronic kidney disease, or unspecified chronic kidney disease; N18.30 Chronic kidney disease, stage 3 unspecified; I25.10 Atherosclerotic heart disease of native coronary artery without angina pectoris; I50.40 Unspecified combined systolic (congestive) and diastolic (congestive) heart failure; I44.7 Left bundle-branch block, unspecified; D64.9 Anemia, unspecified; Z86.73 Personal history of transient ischemic attack (TIA), and cerebral infarction without residual deficits; Z79.82 Long term (current) use of aspirin; Z79.02 Long term (current) use of antithrombotics/antiplatelets; Z79.51 Long term (current) use of inhaled steroids; F17.210 Nicotine dependence, cigarettes, uncomplicated
CPT/HCPCS: 52235; 36415; 85610; 85730; 87086; 88305; A9270; J0690; J1100; J2405; J2704; J3010; J7120

== ENCOUNTER 2023-11-26 15:55 | Outpatient (CLI) | payer MEDICARE, SELFPAY ==
[2023-11-26 18:43] LABS: Basophils Absolute Auto 0.1 K/mm3 (0.0-0.1); Basophils Percent Auto 0.6 % (0.2-1.2); Eosinophils Absolute Auto 0.2 K/mm3 (0-0.3); Eosinophils Percent Auto 2.2 % (0-4.4); Hematocrit 46.5 % (42.0-52.0); Hemoglobin 14.8 g/dL (14.0-18.0); Immature Granulocyte Absolute 0.02 K/mm3 (0.00-0.031); Immature Granulocyte Percent A 0.2 % (0-0.5); Lymphocytes Absolute Auto 1.43 K/mm3 (0.9-3.2); Lymphocytes Percent Auto 13.1 % (18.3-44.2); Mean Corpuscular HGB Conc 31.8 g/dl (32-36); Mean Corpuscular Hemoglobin 33.4 pg (26-34); Mean Platelet Volume 10.4 fl (7.4-10.4); Monocytes Absolute Auto 0.9 K/mm3 (0.1-0.6); Monocytes Percent Auto 8.2 % (2.6-8.5); Neutrophils Absolute Auto 8.2 K/mm3 (1.3-6.7); Neutrophils Percent Auto 75.7 % (45.5-73.1); Platelet Count Result 235 k/mm3 (150-375); Red Blood Count 4.43 M/mm3 (4.6-6.20); Red Cell Distribution Width 14.3 % (11.5-14.5); White Blood Count 10.9 K/mm3 (4.5-10.0)
[2023-11-26 18:46] LABS: Alanine Aminotransferase 22 U/L (6-50); Alkaline Phosphatase 144 U/L (38-126); Anion Gap 7 mmol/L (8-16); Aspartate Amino Transferase 47 U/L (17-59); Blood Urea Nitrogen 22 mg/dL (9-20); Carbon Dioxide 29 mmol/L (22-30); Chloride 105 mmol/L (98-107); Cholesterol 239 mg/dL (0-200); Estimated Glomerular Filt Rate 27; Glucose 115 mg/dL (65-110); HDL Direct 46 mg/dL; Potassium 3.5 mmol/L (3.4-5.0); Sodium 141 mmol/L (137-145); Triglycerides 154 mg/dL (<150)
[2023-11-26 18:57] LABS: LDL Cholesterol Direct 145 mg/dL
[2023-11-26 19:09] LABS: Prostate Specific Antigen 6.2 ng/mL (< OR = 4.0)
[2023-11-26 19:29] LABS: Appearance Urine Clear (Clear); Bacteria Urine None Seen /hpf; Bilirubin Urine Negative (Negative); Blood Urine Negative (Negative); Color Urine Yellow (Yellow); Glucose Urine UA Negative (Negative); Ketones Urine Negative (Negative); Leukocyte Esterase Ur Negative LEU/UL (NEGATIVE); Need Manual Microscopic Reviewed; Nitrate Urine Negative (Negative); Protein Urine 1+ mg/dL (Negative); RBC Urine 0-2 /hpf (0-2); Squamous Epithelial Cell Urine Occasional /hpf (Few); Urobilinogen Urine 0.2 mg/dL (<2.0); pH Urine 5.5 (5.0-9.0)
[2023-11-26 19:30] LABS: Add Urine Microscopic? YES
[2023-11-26 20:32] LABS: Vitamin D 25 Hydroxy 42.9 ng/mL
== END 2023-11-26 15:56 | disposition home or self-care (01) ==
PROVIDERS: PCP Family Medicine; Visit Provider Family Medicine
DX: Z12.5 Encounter for screening for malignant neoplasm of prostate (principal); E78.5 Hyperlipidemia, unspecified; I12.9 Hypertensive chronic kidney disease with stage 1 through stage 4 chronic kidney disease, or unspecified chronic kidney disease; N18.32 Chronic kidney disease, stage 3b; E55.9 Vitamin D deficiency, unspecified; D49.4 Neoplasm of unspecified behavior of bladder; E53.8 Deficiency of other specified B group vitamins
CPT/HCPCS: 36415; 80053; 80061; 81001; 82306; 82607; 84153; 84443; 85025; G0103

== ENCOUNTER 2025-06-15 14:02 | Outpatient (CLI) | payer MEDICARE, SELFPAY ==
[2025-06-15 19:22] LABS: Add Urine Microscopic? YES; Appearance Urine Cloudy (Clear); Glucose Urine UA Negative (Negative); Leukocyte Esterase Ur 1+ LEU/UL (Negative); Nitrate Urine Negative (Negative); Specific Grav Ur 1.010 (1.001-1.035)
[2025-06-15 19:29] LABS: Alanine Aminotransferase 52 U/L (6-50); Albumin Level 3.8 g/dL (3.5-5.1); Alkaline Phosphatase 142 U/L (38-126); Anion Gap 8 mmol/L (4-12); Aspartate Amino Transferase 112 U/L (17-59); Bilirubin,Total 0.9 mg/dL (0.2-1.3); Blood Urea Nitrogen 26 mg/dL (9-20); Calcium 8.8 mg/dL (8.4-10.2); Carbon Dioxide 33 mmol/L (22-30); Chloride 100 mmol/L (98-107); Cholesterol 195 mg/dL (0-200); Estimated Glomerular Filt Rate 24; Glucose 105 mg/dL (65-110); HDL Direct 41 mg/dL; Magnesium 2.2 mg/dL (1.6-2.3); Potassium 3.6 mmol/L (3.4-5.0); Sodium 141 mmol/L (137-145); Total Protein 7.3 g/dL (6.3-8.2); Triglycerides 136 mg/dL (<150)
[2025-06-15 19:40] LABS: Hematocrit 45.6 % (42.0-52.0); Hemoglobin 14.6 g/dL (14.0-18.0); Immature Granulocyte Percent A 0.5 % (0-0.5); Lymphocytes Absolute Auto 1.72 K/mm3 (0.9-3.2); Mean Corpuscular HGB Conc 32.0 g/dl (32-36); Mean Corpuscular Hemoglobin 32.7 pg (26-34); Mean Corpuscular Volume 102.2 fl (80-100); Nucleated Red Blood Cells Absolute Auto 0.000 K/mm3 (0.0-0.012); Nucleated Red Blood Cells Perc 0.0 % (0.0-0.2); Platelet Count Result 267 k/mm3 (150-375); Red Blood Count 4.46 M/mm3 (4.6-6.20); White Blood Count 10.2 K/mm3 (4.5-10.0)
[2025-06-15 20:17] LABS: Thyroid Stimulating Hormone Reflex 0.827 uIU/mL (0.465-4.68)
[2025-06-15 20:22] LABS: Hemoglobin A1C 6.0 % (<5.7)
[2025-06-15 20:44] LABS: Prostate Specific Antigen 1.0 ng/mL (< OR = 4.0)
[2025-06-15 21:03] LABS: Vitamin B12 856.0 pg/mL (239-931)
== END 2025-06-15 14:03 | disposition home or self-care (01) ==
LOC: ANHGOSHLAB 14:03
PROVIDERS: PCP Family Medicine; Visit Provider Nurse Practitioner Family
DX: Z12.5 Encounter for screening for malignant neoplasm of prostate (principal); R97.20 Elevated prostate specific antigen [PSA]; E78.5 Hyperlipidemia, unspecified; R82.90 Unspecified abnormal findings in urine; E55.9 Vitamin D deficiency, unspecified; R73.9 Hyperglycemia, unspecified; I11.0 Hypertensive heart disease with heart failure; I50.42 Chronic combined systolic (congestive) and diastolic (congestive) heart failure; I12.9 Hypertensive chronic kidney disease with stage 1 through stage 4 chronic kidney disease, or unspecified chronic kidney disease; N18.32 Chronic kidney disease, stage 3b; Z86.79 Personal history of other diseases of the circulatory system
CPT/HCPCS: 36415; 80053; 80061; 81001; 82306; 82607; 83036; 83735; 84153; 84443; 85025; 87086; G0103